=== PATIENT | female | born 1975 | race Caucasian/White ===

== ENCOUNTER 2024-09-26 07:27 | Outpatient (OUT) | payer OTHER, SELFPAY ==
--- NOTE | 2024-09-26 07:34 | MM_ITS ---
Patient Name: NICOLETTE BRADY MR#: [id number] : 1975 Exam Date: 09/26/2024 Ordering Doctor: DR LUIS ANTONIO PEREZ RADIOLOGY REPORT PROCEDURE: MM TOMOSYNTHESIS SCREENING BI COMPARISON: MG MAMM SCREEN 3D JIM CAD, 11/27/2021. MG MAMM SCREEN 3D JIM CAD, 12/01/2022. INDICATIONS: Screening Calculator Name NCI Breast Cancer Risk Assessment Tool 5 Year Breast Cancer Risk 0.80% Lifetime Breast Cancer Risk 7.20% Personal Breast Cancer No Personal Ovarian Cancer No Treatments None Family Cancers None LOCATION: [facility] BREAST COMPOSITION: The breasts are extremely dense, which lowers the sensitivity of mammography. FINDINGS: DIAGNOSTIC CATEGORY 1--NEGATIVE. NO CHANGE FROM COMPARISON ASSESSMENT. Scattered benign-appearing nodules are present. Scattered benign-appearing calcifications are present. Scattered benign-appearing lymph nodes are present. RIGHT BREAST: No significant suspicious finding. LEFT BREAST: No significant suspicious finding. RECOMMENDATIONS: ROUTINE MAMMOGRAM AND CLINICAL EVALUATION IN 12 MONTHS. PLEASE NOTE: A NORMAL MAMMOGRAM DOES NOT EXCLUDE THE POSSIBILITY OF BREAST CANCER. A CLINICALLY SUSPICIOUS PALPABLE LUMP SHOULD BE BIOPSIED. Dictated by: John Baker MD on 09/26/2024 at 09:12 Approved by: John Baker MD on 09/26/2024 at 09:14
== END 2024-09-26 07:28 | disposition home or self-care (01) ==
PROVIDERS: PCP Family Medicine; Visit Provider Obstetrics & Gynecology
DX: Z12.31 Encounter for screening mammogram for malignant neoplasm of breast (principal)
CPT/HCPCS: 77063; 77067

== ENCOUNTER 2025-09-03 08:44 | Outpatient (OUT) | payer OTHER, SELFPAY ==
--- OUTSIDE RECORDS SUMMARY | 2025-09-03 09:04 | XMS_ITS | CCD ---
Author Organization [facility] Care Team Providers Care Professor Of Law Name Role Phone CARMENZA SAVAGE Unavailable Unavailable Sanjuana Abreu Unavailable Unavailable Unavailable Jaci Solis Unavailable SUSY, DR ITSHA Cornell Admitting Unavailable WEST, DR TISHA Cornell Attending Unavailable LOIS, DR HODGES Primary Care Unavailable WEST, DR TISHA Cornell Consulting Unavailable ZIEBER, DR BOB Lobo Consulting Unavailable VISCI, DR SALMON Admitting Unavailable VISCI, DR SALMON Attending Unavailable LOIS, DR HODGES Primary Care Unavailable WEST, DR TISHA Cornell Consulting Unavailable VISCI, DR SALMON Consulting Unavailable YADIRAUINN, DR GAMINO Admitting Unavailable MCGUINN, DR GAMINO Attending Unavailable LOIS, DR HODGES Primary Care Unavailable KANU, DR GAMINO Consulting Unavailable Kanu, Hanny Referring Unavailable Hanny Bobby Attending Unavailable Lois, Dr. Sanjuana Diaz Primary Care Unavaila ble Raymond, Dr. Sanjuana Diaz Primary Care Unavaila ble Hanny Bobby Referring Unavailable Hanny Bobby Attending Unavailable Sanjuana Abreu MD Primary Care Provider [phone] Sanjuana Abreu MD Primary Care Provider ELIANA BRAGA Attending Unavailable VISCI, BRANDEN Alberto Attending Unavailable ALDO POPE Attending Unavailable HANNY BOBBY Referring Unavailable SANJUANA ABREU Primary Care Unavailable Allergies Allergy ClassificationReported Allergen(s)Allergy TypeDate of OnsetReaction(s) Facility (1 source)Adhesive agent; Translations: [ADHESIVE]Propensity to adverse reactions to drug (disorder)66-79-8554PWODyeiqsekrMer[facility] (7 sources)Acetaminophen / oxyCODONE; Translations: [Percocet TABS]Drug Allergy 10-67-1192EoucchnRrfamcpzapLima [facility] (1 source)Acetaminophen / oxyCODONEDrug Cvpvhho02-76-6516Qwi [facility] Repository (1 source)LatexDrug allergy (disorder)02-36-9792Ekj [facility] Repository (8 sources)Acetaminophen / oxyCODONE; Translations: [OXYCODONE-ACETAMINOPHEN] Drug Jeumjvi39-57-5930[facility] Medications Current Medications MedicationDrug Class(es)DatesSig (Normalized)Sig (Original)Acetaminophen / HYDROcodone (1 source)Opioid AgonistStart: 88-00-5197ukhr 1-2 tablets by mouth every four to six hours as needed for painNorco 10-325 MG 1-2 tablet as needed Orally every 4-6 hrs prn pain for 7 days February, ActiveamLODIPine 5 mg oral tablet (1 source)Dihydropyridine Calcium Channel BlockerStart: 08-20-2025 End: 15-97-5623gkqm 1 tablet by mouth once dailyamLODIPine (Norvasc) 5 mg tablet Indications: Benign essential hypertension , BMI 27.0-27.9,adult Take 1 tablet (5 mg) by mouth once daily. 30 tablet 11 08/20/2025 08/20/2026 Activebaclofen 10 mg oral tablet (1 source)gamma-Aminobutyric Acid-ergic Agonisttake 1 tablet by mouth every eight hoursBaclofen 10 MG 1 tablet with food or milk Orally Three times a day Activechlorthalidone 25 mg oral tablet (7 sources)Thiazide-like DiureticStart: 11-14-2024 End: 32-41-9883gkwk 1 tablet by mouth once dailychlorthalidone (Hygroton) 25 mg tablet Indications: Benign essential hypertension Take 1 tablet (25mg) by mouth once daily. 90 tablet 3 08/20/2025 ActiveStart: 12-21-2021 End: 54-83-6720fteu 1 tablet by mouth once dailychlorthalidone (Hygroton) 25 mg tablet Indications: Benign essential hypertension Take 1 tablet (25mg) by mouth once daily. 90 tablet 3 01/11/2024 Activeestradiol 1 mg oral tablet (14 sources)EstrogenStart: 09-27-2023 End: 97-91-0076xdqg 1 tablet by mouth once dailyestradiol (Estrace) 1 MG tablet Indications: Postmenopausal HRT (hormone replacement therapy) Take 1 tablet (1 mg) by mouth Daily 90 tablet 3 09/19/2024 ActivehydroCHLOROthiazide 25 mg oral tablet (7 sources)Thiazide Diuretictake 1 tablet by mouth in the morning hydroCHLOROthiazide (HYDRODiuril) 25 MG tablet Take 25 mg by mouth in the morning. ActiveLevonorgestrel (7 sources)Progestin, Progestin-containing Intrauterine DeviceLevonorgestrel (LILETTA, 52 MG, IU) Liletta (52 MG) Activelosartan potassium 50 mg oral tablet (13 sources)Angiotensin 2 Receptor BlockerStart: 12-20-2024 End: 79-89-4463lpsm 1 tablet by mouth once dailylosartan (Cozaar) 50 mg tablet Indications: Essential (primary) hypertension Take 1 tablet (50 mg) by mouth once daily. 90 tablet 3 08/20/2025 ActivemetroNIDAZOLE 500 mg oral tablet (2 sources)Nitroimidazole AntimicrobialStart: 09-19-2024 End: 20-47-9570qoas 1 tablet by mouth in the morningmetroNIDAZOLE (Flagyl) 500 MG tablet Indications: BV (bacterial vaginosis) Take 1 tablet (500 mg) by mouth in the morning and 1 tablet (500 mg) before bedtime. Do all this for 7 days. 14 tablet 09/19/2024 09/26/2024 Active Problems Active Problems Problem ClassificationProblemDateDocumented DateEpisodic/ChronicContraceptive and procreative management (2 sources)Intrauterine contraceptive device in situ; Translations: [Encounter for routine checking of intrauterine contraceptive device]74-41-5134Xiibzcsg Disorders of lipid metabolism (8 sources)Hyperlipidemia; Translations: [Other and unspecified hyperlipidemia] Onset: 909921-87-0205FwbwaqoLtbfbrbof hypertension (20 sources)Benign essential hypertension; Translations: [Benign essential hypertension]Onset: 30-91-5469RjazbpjIrhfqlibuqiza and screening for infectious disease (2 sources)Patient encounter status; Translations: [Encounter for screening for human papillomavirus (HPV)]08-98-3866YukibarcCpqmhegskjhs diseases of female pelvic organs (2 sources)Bacterial vaginosis; Translations: [Acute vaginitis]09-19-2024 EpisodicMenopausal disorders (2 sources)Postmenopausal state; Translations: [Hormone replacement therapy] 77-56-3077FetozatbOyvb disorders (1 source)Depressive disorder; Translations: [Major depressive disorder, single episode, unspecified]Onset: 71-06-9113MztmrutWsdvnujqf of unspecified nature or uncertain behavior (2 sources)Neoplastic disease; Translations: [Neoplasm of unspecified behavior of bone, soft tissue, and skin]05-85-6645GmwjfciqCtxod and unspecified benign neoplasm (2 sources)Melanocytic nevi of other parts of face; Translations: [Benign neoplasm of skin of other and unspecified parts of face]13-33-3306UmycdacyKyzzr female genital disorders (2 sources)Vaginal discharge; Translations: [Other specified noninflammatory disorders of vagina]08-61-2423IezjtjhcKhysx nutritional; endocrine; and metabolic disorders (1 source)Obese class I; Translations: [Obesity, unspecified]ChronicOther nutritional; endocrine; and metabolic disorders (1 source)Simple obesity ; Translations: [Other obesity due to excess calories] ChronicOther nutritional; endocrine; and metabolic disorders (2 sources)Body mass index 25-29 - overweight; Translations: [Body Mass Index 29.0-29.9, adult]EpisodicOther nutritional; endocrine; and metabolic disorders (7 sources)Overweight in adulthood with body mass index of 25 or more but less than 30; Translations: [Overweight]Onset: 752392-85-0638ZlpkzhsiHjnip nutritional; endocrine; and metabolic disorders (2 sources)Body mass index (BMI) 27.0-27.9, adult; Translations: [Body mass index (BMI) 27.0-27.9, adult]Onset: 58-23-6223PoegujwxZosinnykfwv; intervertebral disc disorders; other back problems (5 sources)Cervical arthritis; Translations: [Spondylosis without myelopathy or radiculopathy, cervical region]ChronicUnclassified (1 source)Patient encounter status; Translations: [Encounter for health counseling related to travel] Past or Other Problems Problem ClassificationProblemDateDocumented DateEpisodic/ChronicNonmalignant breast conditions (1 source)Disorder of breast, unspecified; Translations: [Disorder of breast, unspecified]Onset: 75-53-9893VayxcvboMyqpbhnucfs chest pain (6 sources)Chest pain; Translations: [Chest pain, unspecified]Onset: 11-15-2023 42-64-3200LxfzvqkaGrguj screening for suspected conditions (not mental disorders or infectious disease) (15 sources)Electrocardiogram abnormal; Translations: [Nonspecific abnormal electrocardiogram [ECG] [EKG]]Onset: 31-83-7680ItydjrwpHveaowrjg and history of mental health and substance abuse codes (6 sources)Ex-smoker; Translations: [Personal history of tobacco use]Onset: 732179-62-0324QsjifayzLpwsugi on above:Quit 03/2018 1/ ppd;Unclassified (1 source)Encounter for health counseling related to travelOnset: 03-31-2022 Resolved: 00-17-6923Gpjhljca veins of lower extremity (1 source)Varicose veins of lower extremity; Translations: [Varicose veins of bilateral lower extremities with other complications]Onset: 50-99-3368Fnlrbgeh Results Test NameValueInterpretationReference RangeFacilityNo Panel Informationon 98-99-8715Nlkb of biopsy: tangential Informed consent: discussed and consent obtained Informed consent comment: The risks and benefits of the biopsy were discussed. Risks include but are not limited to bleeding, infection, scarring, pain, and nerve damage. An opportunity to ask questions prior to the procedure was permitted and all questions were answered. Patient was prepped and draped in usual sterile fashion: area cleansed with alcohol. Anesthesia: the lesion was anesthetized in a standard fashion Anesthetic: 1% lidocaine w/ epinephrine 1-100,000 buffered w/ 8.4% NaHCO3 Instrument used: DermaBlade Hemostasis achieved with: electrodesiccation Outcome: patient tolerated procedure well Outcome comment: The specimen was placed in a prelabeled formalin container to be sent for pathology Post-procedure details: sterile dressing applied and wound care instructions given Post-procedure details comment: Emphasized need to contact clinic for any signs of infection, uncontrollable bleeding, or complications. Dressing type: bandage Additional details: Photo taken Amount of lidocaine used: 1.0 [facility] HealthType of biopsy: tangential Informed consent: discussed and consent obtained Informed consent comment: The risks and benefits of the biopsy were discussed. Risks include but are not limited to bleeding, infection, scarring, pain, and nerve damage. An opportunity to ask questions prior to the procedure was permitted and all questions were answered. Patient was prepped and draped in usual sterile fashion: area cleansed with alcohol. Anesthesia: the lesion was anesthetized in a standard fashion Anesthetic: 1% lidocaine w/ epinephrine 1-100,000 buffered w/ 8.4% NaHCO3 Instrument used: DermaBlade Hemostasis achieved with: electrodesiccation Outcome: patient tolerated procedure well Outcome comment: The specimen was placed in a prelabeled formalin container to be sent for pathology Post-procedure details: sterile dressing applied and wound care instructions given Post-procedure details comment: Emphasized need to contact clinic for any signs of infection, uncontrollable bleeding, or complications. Dressing type: bandage Additional details: Photo taken Amount of lidocaine used: 1.0 [facility] TOMOSYNTHESIS SCREENING BIon 90-49-3677[place] [address] Mammography Report Signed Patient: NICOLETTE BRADY MR#: [id number] : 1975 Acct:[id number] Age/Sex: 49 / F ADM Date: 09/26/24 Loc: MAMMO Attending Dr: BRANDEN PEREZ Ordering Physician: BRANDEN PEREZ Results: Date of Service: 09/26/24 Follow Up: Procedure(s): MM tomosynthesis screening BI Accession Number(s): [id number] cc: SANJUANA ABREU ; BRANDEN PEREZ Patient Name: NICOLETTE BRADY MR#: [id number] : 1975 Exam Date: 09/26/2024 Ordering Doctor: DR BRANDEN PEREZ RADIOLOGY REPORT PROCEDURE: MM TOMOSYNTHESIS SCREENING BI COMPARISON: MG MAMM SCREEN 3D JIM CAD, 11/27/2021. MG MAMM SCREEN 3D JIM CAD, 12/01/2022. INDICATIONS: Screening Calculator Name NCI Breast Cancer Risk Assessment Tool 5 Year Breast Cancer Risk 0.80% Lifetime Breast Cancer Risk 7.20% Personal Breast Cancer No Personal Ovarian Cancer No Treatments None Family Cancers None LOCATION: The [facility] BREAST COMPOSITION: The breasts are extremely dense, which lowers the sensitivity of mammography. FINDINGS: DIAGNOSTIC CATEGORY 1--NEGATIVE. NO CHANGE FROM COMPARISON ASSESSMENT. Scattered benign-appearing nodules are present. Scattered benign-appearing calcifications are present. Scattered benign-appearing lymph nodes are present. RIGHT BREAST: No significant suspicious finding. LEFT BREAST: No significant suspicious finding. RECOMMENDATIONS: ROUTINE MAMMOGRAM AND CLINICAL EVALUATION IN 12 MONTHS. PLEASE NOTE: A NORMAL MAMMOGRAM DOES NOT EXCLUDE THE POSSIBILITY OF BREAST CANCER. A CLINICALLY SUSPICIOUS PALPABLE LUMP SHOULD BE BIOPSIED. Dictated by: Tisha Baker MD on 09/26/2024 at 09:12 Approved by: Tisha Baker MD on 09/26/2024 at 09:14 Dictated By: Tisha Baker M.D. Signed By: 09/26/24914 DD/ 3 TD/TT: Status Controller:TBHRadiology, Radiologist, - 09/26/2024 [place] [address] Mammography Report Signed Patient: NICOLETTE BRADY MR#: [id number] : 1975 Acct:[id number] Age/Sex: 49 / F ADM Date: 09/26/24 Loc: MAMMO Attending Dr: BRANDEN PEREZ Ordering Physician: BRANDEN PEREZ Results: Date of Service: 09/26/24 Follow Up: Procedure(s): MM tomosynthesis screening BI Accession Number(s): [id number] cc: SANJUANA ABREU ; BRANDEN PEREZ Patient Name: NICOLETTE BRADY MR#: [id number] : 1975 Exam Date: 09/26/2024 Ordering Doctor: DR BRANDEN PEREZ RADIOLOGY REPORT PROCEDURE: MM TOMOSYNTHESIS SCREENING BI COMPARISON: MG MAMM SCREEN 3D JIM CAD, 11/27/2021. MG MAMM SCREEN 3D JIM CAD, 12/01/2022. INDICATIONS: Screening Calculator Name NCI Breast Cancer Risk Assessment Tool 5 Year Breast Cancer Risk 0.80% Lifetime Breast Cancer Risk 7.20% Personal Breast Cancer No Personal Ovarian Cancer No Treatments None Family Cancers None LOCATION: [facility] BREAST COMPOSITION: The breasts are extremely dense, which lowers the sensitivity of mammography. FINDINGS: DIAGNOSTIC CATEGORY 1--NEGATIVE. NO CHANGE FROM COMPARISON ASSESSMENT. Scattered benign-appearing nodules are present. Scattered benign-appearing calcifications are present. Scattered benign-appearing lymph nodes are present. RIGHT BREAST: No significant suspicious finding. LEFT BREAST: No significant suspicious finding. RECOMMENDATIONS: ROUTINE MAMMOGRAM AND CLINICAL EVALUATION IN 12 MONTHS. PLEASE NOTE: A NORMAL MAMMOGRAM DOES NOT EXCLUDE THE POSSIBILITY OF BREAST CANCER. A CLINICALLY SUSPICIOUS PALPABLE LUMP SHOULD BE BIOPSIED. Dictated by: Tisha Baker MD on 09/26/2024 at 09:12 Approved by: Tisha Baker MD on 09/26/2024 at 09:14 Dictated By: Tisha Baker M.D. Signed By: 09/26/24914 DD/ 3 TD/TT: Status Controller: [facility] CenterRad[facility] Study observation (narrative)[facility] TOMOSYNTHESIS SCREENING BIOrdered By: Radiologist Radiology on 80-53-5058JDNEUniversity Health Truman Medical Center Work Phone: Laboratory - Microbiology and Antimicrobial susceptibilityon 20-30-3673Qbwfsinta vaginosis and vaginitis DNA panel Probe+sig amp (Vag fld)PositiveNegativeUniversity Health Truman Medical CenterNo Panel Informationon 09-19-2024 Interpretation and review of laboratory resultsAbnormalNOParkland Health Center Trichomonas, UANegativeNOMA HealthcareYeastNegativeUniversity Health Truman Medical CenterNOMA HealthcareOffice Visit (Cardiology)on 29-22-9874Cspyhw-up visit Diagnoses/Problems Assessed Hyperlipidemia (272.4) (E78.5) Benign essential hypertension (401.1) (I10) Overweight with body mass index (BMI) of 26 to 26.9 in adult (278.02,V85.22) (E66.3,Z68.26) Orders Benign essential hypertension Basic Metabolic Panel; Status:Active - Retrospective Authorization; Requested for:04Jan2023; Hyperlipidemia Lipid Panel; Status:Active - Retrospective Authorization; Requested for:04Jan2023; Overweight with body mass index (BMI) of 26 to 26.9 in adult Healthy Weight Tips; Status:Complete - Retrospective Authorization; Done: 04Jan2023 Some eating tips that can help you lose weight.; Status:Complete - Retrospective Authorization; Done: 04Jan2023 Patient Instructions Please bring all medicines, vitamins, and herbal supplements with you when you come to the office. Prescriptions will not be filled unless you are compliant with your follow up appointments or have a follow up appointment scheduled as per instruction of your physician. Refills should be requested at the time of your visit. Follow up in 1 year Chief Complaint NICOLETTE BRADY is being seen for an annual follow-up of. History of Present Illness Patient returns in follow-up of problems as noted. She is done well. Blood pressure control continues to be excellent. Last year we did a lipid profile and lipids were elevated and we recommended statin therapy but she declined. This was discussed in great detail today she is more amenable and/or willing to implement lipid-lowering therapy. The merits of treating her lipids were discussed and explained in great detail. She has a 52-year-old brother has had several heart attacks and I use this as an example as to why we need to aggressively treat risk factors including her hypertension and hyperlipidemia. She is willing to initiate statin therapy. She does, though, wished us to perform a lipid profile before initiating statin therapy. We will do so but I advised her that more than likely we will contact her and advised lipid-lowering therapy. We also advocated diet exercise weight loss as a means to favorably improve her risk profile. She understands her recommendations and will attempt to implement them. Surgical History Problems History of Arm surgery plates History of Tonsillectomy Current Meds Medication NameInstruction Chlorthalidone 25 MG Oral TabletTAKE 1 TABLET DAILY. Estradiol 1 MG Oral TabletTAKE 1 TABLET DAILY DIRECTED. Losartan Potassium 50 MG Oral TabletTAKE 1 TABLET DAILY. Patient did not bring medication list or bottles. Updated verbally with patient Allergies Medication Percocet TABS Adverse Reaction; Itching; Recorded By: Dahiana Colunga; 08/24/2021 9:06:04 AM Social History Problems Alcohol use (V49.89) (Z78.9) occasionally Caffeine use (V49.89) (Z78.9) 1 sometimes 2 cups coffee in the morning Former smoker (V15.82) (Z87.891) Quit 03/2018 1/2 ppd No illicit drug use Review of Systems Constitutional: not feeling tired. Eyes: no eyesight problems. ENT: no hearing loss and no nosebleeds. Cardiovascular: no intermittent leg claudication and as noted in HPI. Respiratory: no chronic cough and no shortness of breath. Gastrointestinal: no change in bowel habits and no blood in stools. Genitourinary: no urinary frequency. Skin: no skin rashes. Neurological: no seizures and no frequent falls. Psychiatric: no depression and not suicidal. All other systems have been reviewed and are negative for complaint. Vitals Vital Signs Recorded: 04Jan2023 08:49AM Heart Rate64, R Radial Holrdvaf785, RUE, Sitting Saoerwxjx08, RUE, Sitting Height5 ft 6 in Rnhnkh321 lb BMI Brmpuxrxem06.95 kg/m2 BSA Calculated1.85 Tobacco Useb) No PHQ-2 #1. Over the last 2 weeks have you felt down, depressed or hopeless? (If yes, answer PHQ-9 below)No PHQ-2 #2. Over the last 2 weeks have you felt little interest or pleasure in doing things? (If yes,answer PHQ-9 below)No Physical Exam Constitutional: alert and in no acute distress. Eyes: no erythema, swelling or discharge from the eye . Neck: neck is supple, symmetric, trachea midline, no masses and no thyromegaly . Pulmonary: no increased work of breathing or signs of respiratory distress and lungs clear to auscultation. Cardiovascular: carotid pulses 2+ bilaterally with no bruit , JVP was normal, no thrills , regular rhythm, normal S1 and S2, no murmurs , pedal pulses 2+ bilaterally and no edema . Abdomen: abdomen non-tender, no masses and no hepatomegaly . Skin: skin warm and dry, normal skin turgor . Psychiatric judgment and insight is normal and oriented to person, place and time . Signatures Electronically signed by : Hanny Bobby MD; Jan 04 2023 9:51AM EST (Author) [facility] TouchworksTobacco Screening.on 24-14-2824Cffwc depression screening assessmentCanby Medical Center 250 DO Work Phone: Tobacco use status CPHSb) [facility] 250 DO Work Phone: MG MAMM SCREEN 3D JIM CADon 45-22-2061XU MAMM SCREEN 3D JIM CADPatient: NICOLETTE BRADY Exam Date: 12/01/2022 : 1975 Gender:F Ordering : DR BRANDEN PEREZ Admission #: [id number] Family : Order #: [id number] CLICK HERE TO VIEW EXAM RADIOLOGY REPORT PROCEDURE: MAMMOGRAM SCREENING 3D BILATERAL CAD COMPARISON: MG MAMM SCREEN JIM W CAD, 11/19/2020. MG MAMM SCREEN 3D JIM CAD, 11/27/2021. INDICATIONS: Screening mammography Calculator Name NCI Breast Cancer Risk Assessment Tool 5 Year Breast Cancer Risk 0.80% Lifetime Breast Cancer Risk 7.50% Personal Breast Cancer No Personal Ovarian Cancer No Treatments None Family Cancers None LOCATION: [facility] BREAST COMPOSITION: Extremely dense, which lowers the sensitivity of mammography. FINDINGS: DIAGNOSTIC CATEGORY 1--NEGATIVE. NO CHANGE FROM COMPARISON ASSESSMENT. RIGHT BREAST: No significant suspicious finding. LEFT BREAST: No significant suspicious finding. RECOMMENDATIONS: ROUTINE MAMMOGRAM AND CLINICAL EVALUATION IN 12 MONTHS. PLEASE NOTE: A NORMAL MAMMOGRAM DOES NOT EXCLUDE THE POSSIBILITY OF BREAST CANCER. A CLINICALLY SUSPICIOUS PALPABLE LUMP SHOULD BE BIOPSIED. Dictated by: Tisha Baker MD on 12/01/2022 at 08:02 Approved by: Tisha Baker MD on 12/01/2022 at 08:06[facility] COVID Quick Testingon 06-03-8224EbordjQtepkrenOfzip NAME'S Online Department Store Other LIPID PROFILEon 88-52-7862YOQE-HDL RATIO NORMSEE BELOW NormalThe [facility] HospitalComvibra hospital [facility] [place] on above:Result Comment: 3.3 - 4.4 LOW RISK 4.4 - 7.1 AVERAGE RISK 7.1 - 11.0 MODERATE RISK >11.0 HIGH RISKPerformed By: #### BMP, LIPID #### [facility] [address] [place] [address] Dr. Joan NegreteCholesterol [Mass/Vol]225 mg/dLCritically high<=200The [facility] on above:Performed By: #### BMP, LIPID #### [facility] [address] [place] [address] Dr. Joan Bergmanesterol in HDL [Mass/Vol]55 mg/zPYqdzfg69-38Fpg [facility] on above:Performed By: #### BMP, LIPID #### [facility] [address] [place] [address] Dr. Joan NegreteCholesterol in LDL [Mass/Vol]151.2 mg/dLNoUniversity Hospitals [facility] on above:Performed By: #### BMP, LIPID #### [facility] [address] [address] [address] Joan NegreteCholesterol.total/Cholesterol in HDL [Mass ratio]4.1 {ratio} NormalThe [facility] HospitalComment on above:Performed By: #### BMP, LIPID #### [facility] [address] [place] [address] Dr. Joan Farrar NORMAL> or = 60 mg/dl - LOW CARDIOVASCULAR RISK <40 mg/dl - HIGH CARDIOVASCULAR RISKWright-Patterson Medical CenterComment on above:Performed By: #### BMP, LIPID #### [facility] [address] [place] [address] Dr. Joan NegreteLDL CALC NORMALSEE BELOWNoRiverside Methodist HospitalComment on above:Result Comment: <100 mg/dl OPTIMAL 100 - 129 mg/dl NEAR OR ABOVE OPTIMAL 130 - 159 mg/dl BORDERLINE HIGH 160 - 189 mg/dl HIGH >190 mg/dl VERY HIGH Performed By: #### BMP, LIPID #### [facility] [address] [place] [address] Dr. Joan NegreteTriglyceride [Mass/Vol]94 mg/dLNormal<=150The [facility] Comment on above:Performed By: #### BMP, LIPID #### [facility] [address] [place] [address] Dr. Joan HancockLDL CALC18.8 mg/dLNoRiverside Methodist HospitalComment on above: Performed By: #### BMP, LIPID #### [facility] [address] [place] [address] Dr. Joan NegretePROF CHEM 8 (BAS METB)on 58-62-6056Hulpx gap [Moles/Vol]11.7 mmol/LNormalOhiohealth Marion General HospitalComment on above:Performed By: #### BMP, LIPID #### [facility] [address] [place] [address] Dr. Joan NegreteCalcium [Mass/Vol]8.4 mg/dLCritically low8.5-10.1The [facility] HospitalComment on above:Performed By: #### BMP, LIPID #### [facility] [address] [place] [address] Dr. Joan NegreteChloride [Moles/Vol]105 mmol/BZagcmg73-067HluOhiohealth Marion General Hospital Comment on above:Performed By: #### BMP, LIPID #### [facility] [address] [address] [address] Joan NegreteCO2 [Moles/Vol]29.1 mmol/GLmvfai55.0-30.0[facility] Comment on above:Performed By: #### BMP, LIPID #### [facility] [address] [address] [address] Joan NegreteCreatinine [Mass/Vol]0.79 mg/dLNormal0.52-1.04Ohio[facility] HospitalComment on above:Performed By: #### BMP, LIPID #### [facility] [address] [place] [address] Dr. Joan SalgadoGFR-AF ESTONIAN>60Normal>=60The [facility] HospitalComment on above:Performed By: #### BMP, LIPID #### [facility] [address] [place] [address] Dr. Joan SalgadoGFR-NON AF ESTONIAN>60Normal>=60[facility] HospitalComment on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 agree with screening films in one year. No interventions needed at thistime. Return to her PCPCarmenza Savage MDNormalCMercy HospitalPROFIRELANDS REGIONAL MED[facility]ENTER ID: [id number]: Lisa Leslie: (none)Author Type: PhysicianType: Progress NotesFiled: 12/05/2017 10:37 AMNote Text:SECOND OPINION OUTSIDE BREAST MCRTHXX89 year old female patient with recent outside mammogram and ultrasounddated 10/24/2017.The breast tissue is heterogeneously dense. There are multiple bilateralstable masses unchanged since 2017. She underwent bilateral ultrasound andwas noted to have multiple simple cysts. The largest in the left breast at3:00 measures 2.2 x 1.2 x 2.1 cm.Agree with outside imaging and results.BIRADS 2 BENIGNReturn to screening.Lisa Aguiar MD12/05/201710:34 AMNormalSheltering Arms HospitalMA OUTSIDE DICOM IMPORT -NBNRon 49-02-6816NZZT OUTSIDE DICOM IMPORT -NBNRImages were obtained outside of [facility] [id number]. [facility] BREAST JIM LIMITED IMPORTon 19-72-6851Qekhtwrls (total)Images were obtained outside of [facility] [id number]_[id number]-Patterson Medical CenterMAMM OUTSIDE DICOM IMPORT -NBNRon 85-56-9562MBSN OUTSIDE DICOM IMPORT -NBNRImages were obtained outside of [facility] [id number]_[id number]. [facility] BREAST JIM LIMITED IMPORTon 76-79-2353Cwysdbyvz (total)Images were obtained outside of [facility] [id number]_IDCSIACKettering Health Main Campus OUTSIDE DICOM IMPORT -NBNRon 09-47-9072NYUL OUTSIDE DICOM IMPORT -NBNRImages were obtained outside of [facility] [id number]_[id number]-Patterson Medical Center Vital Signs Date TimeVital SignValuePerforming VwvnuafhqMdllzlxp26-70-8534 15:58-0500Body mirlcr696.6 cmAldo Pope AVIATION NEUROPSYCHOLOGIST-CONSULTING PROPERTY MANAGER Work Phone: [phone] [place], [place] 3378511-04-2025 15:58-0500 Body mass index (BMI) [Ratio]27.08 kg/a1TyrinAldo Pope AVIATION NEUROPSYCHOLOGIST-CONSULTING PROPERTY MANAGER Work Phone: [phone] [place], [place] 3378511-04-2025 15:58-0500 Body ymmbrq48.11 kgAldo Pope AVIATION NEUROPSYCHOLOGIST-CONSULTING PROPERTY MANAGER Work Phone: [phone])[address]11-04-2025 15:58-0500 Diastolic blood cliugtlq114 mm[Hg]Aldo Pope AVIATION NEUROPSYCHOLOGIST-CONSULTING PROPERTY MANAGER Work Phone: [phone]11-04-2025 15:58-0500 Heart rate64 /minDrito Pope AVIATION NEUROPSYCHOLOGIST-CONSULTING PROPERTY MANAGER Work Phone: [phone])[address]11-04-2025 15:58-0500 Systolic blood ushmwadw235 mm[Hg]Aldo Pope AVIATION NEUROPSYCHOLOGIST-CONSULTING PROPERTY MANAGER Work Phone: [phone] [place], [place] 3378512-04-2024 14:43-0500 Body mass index (BMI) [Ratio]28.39 kg/b5Hxqqsrh Visci DO Work Phone: [facility] CenterXgatbxfdst79-40-3085 14:43-0500Body gayhoj82.2 kg Branden Visci DO Work Phone: [facility] CenterVcrvbioflt87-17-8773 14:43-0500Diastolic blood fluudadt59 mm[Hg]Branden Visci DO Work Phone: [facility] CenterCqbejrwxvm68-45-8914 14:43-0500Systolic blood egkxiaiy610 mm[Hg]Branden Visci DO Work Phone: [facility] CenterHwhqyfitsq42-05-1318 16:02-0400Body debdui555.6 cmHanny Bobby MD Work Phone: [facility]03-27-2024 16:02-0400 Body mass index (BMI) [Ratio]26.31 kg/d2DmsloaiHanny Bobby MD Work Phone: [facility]03-27-2024 16:02-0400 Body qahtws23.94 kgHanny Bobby MD Work Phone: [facility]03-27-2024 16:02-0400 Diastolic blood nhilvvdd34 mm[Hg]Hanny Bobby MD Work Phone: [facility]03-27-2024 16:02-0400 Heart rate78 /minHanny Bobby MD Work Phone: [facility]03-27-2024 16:02-0400 Systolic blood srebsgph503 mm[Hg]Hanny Bobby MD Work Phone: [facility]03-21-2023 08:49-0400 Body srnrja137.64 cmRugen Erin Raymond Work Phone: [phone]-Xddnk [facility] [address] DO Work Phone: [phone] 08:49-0400Body mass index (BMI) [Ratio] 26.95 kg/w0Wkspu M Raymond Work Phone: mp084-0970XT-Dgrtx [facility] [address] DO Work Phone: [phone]) 549-757003-21-2023 08:49-0400Body surface area Derived from formula1.85 f2Eyhlh M Raymond Work Phone: mp866-5239UX-Ohdsz [facility] [address] DO Work Phone: [phone] 08:49-0400Body nmgadn81.75 kgRugen M Lois Work Phone: mp233-4420FL-Hemcx [facility] [address] DO Work Phone: [phone] 862-143603-21-2023 08:49-0400Diastolic blood mm[Hg] Rugflaco Khan Lois Work Phone: mp773-8263WC-Uadeu [facility] [address] DO Work Phone: 1(763) 411-125403-21-2023 08:49-0400Heart rate64 /minRugen M Raymond Work Phone: mp948-8556KH-Gwpwj [facility] [address] DO Work Phone: 1(833) 807-213603-21-2023 08:49-0400Systolic blood mm[Hg] Sanjuana Khan Raymond Work Phone: mp303-6188IC-Fpeto [facility] [address] DO Work Phone: 1(395) 298-449004-06-2022 08:17-2038011.2 1Rruby Hartmanna Work Phone: [phone]-Ucecm [facility] [address] DO Work Phone: Comment on above:MBGUQ34-37-9637 08:16-0400Body height 167.64 cmRruby Hartmanna Work Phone: mp215-5974JU-Dwkun [facility] [address] DO Work Phone: 1(877) 249-559203-28-2022 08:16-0400Body mass index (BMI) [Ratio] 27.12 kg/d4MbxyoSanjuana Hartmanna Work Phone: mp072-0546GU-Tsjyx [facility] [address] DO Work Phone: [phone] 334-483403-28-2022 08:16-0400Body surface area Derived from formula1.86 o9Fjclw M Raymond Work Phone: mp990-0860BB-Wktcf [facility] [address] DO Work Phone: [phone]) 802-361103-28-2022 08:16-0400Body lkbirc64.2 kgSanjuana Khan Raymond Work Phone: mp117-9767VH-Svnde [facility] [address] DO Work Phone: [phone]) 616-815303-28-2022 08:16-0400Diastolic blood zvfsqhsi57 mm[Hg] Sanjuana Khan Lois Work Phone: mp280-3800GD-Bwbet [facility] [address] DO Work Phone: 1(271) 441-875703-28-2022 08:16-0400Heart rate64 /minSanjuana Khan Raymond Work Phone: mp455-1087FU-Vbbtc [facility] [address] DO Work Phone: 1(684) 395-606503-28-2022 08:16-0400Systolic blood gaxnpowz290 mm[Hg] Sanjuana Abreu Work Phone: [phone]-Iwskc [facility] [address] DO Work Phone: Encounters Encounter DateEncounter TypeCare ProviderFacilityStart: 08-20-2025 End: 52-83-7175Imvokk outpatient visit 25 minutesAldo Pope AVIATION NEUROPSYCHOLOGIST-CONSULTING PROPERTY MANAGER Work Phone: [facility] CenterComment on above:Benign essential hypertension (Primary Dx); BMI 27.0-27.9,adult; Essential (primary) hypertensionStart: 08-20-2025 End: 67-61-3909gajzeabagxTMMHDPhoebe Worth Medical Center AmbulatoryStart: 06-18-2025 End: 59-86-8305Ekbyja outpatient new 30 minutesNatalie A Felter AVIATION NEUROPSYCHOLOGIST-CONSULTING PROPERTY MANAGER Work Phone: noms [place] DermatologyComment on above:Melanocytic nevus of face, other location (Primary Dx); Neoplasm of unspecified behavior of bone, soft tissue, and skinStart: 06-18-2025 End: 21-16-7816ryjgshopjoHVCQHBX A FELTERNot AvailableStart: 06-18-2025 End: 69-60-1285Xzrqbw flowsheetNatalie A Felter AVIATION NEUROPSYCHOLOGIST-CONSULTING PROPERTY MANAGER Work Phone: [facility] [place] DermatologyStart: 06-18-2025 End: 60-74-4816Zeogbt flowsheetNatalie A Felter AVIATION NEUROPSYCHOLOGIST-CONSULTING PROPERTY MANAGER Work Phone: [facility] [place] DermatologyStart: 09-26-2024 End: 59-96-3091Kuyydeuqn Result EncounterRichard A Visci DO Work Phone: noms External Department UnsolicitedStart: 09-26-2024 End: 22-78-4487Palwtlodu Result EncounterRichard A Visci DO Work Phone: noms External Department UnsolicitedStart: 09-19-2024 End: 70-10-2949Rchukfu encounter statusRichard A Visci DO Work Phone: noms HealthcareStart: 09-19-2024 End: 48-61-6058Vjpidexa preventive med est patient 40-64yrsRicheldon Alberto Visci DO Work Phone: noms [facility] OBComment on above:Encounter for gynecological examination with abnormal finding; Encounter for screening mammogram for malignant neoplasm of breast; Screening for malignant neoplasm of cervix; Screening for HPV (human papillomavirus); Intrauterine device surveillance; Postmenopausal HRT (hormone replacement therapy); Vaginal discharge; BV (bacterial vaginosis)Start: 09-19-2024 End: 01-59-8635wwkfkiclxpLHFYBNF A VISCINot AvailableStart: 09-19-2024 End: 24-02-2580Nodtrs flowsheetRichard A Visci DO Work Phone: noms [facility] OBStart: 09-19-2024 End: 28-90-8278Acvsgh flowsheetRichard A Visci DO Work Phone: noms [facility] OBStart: 01-11-2024 End: 91-13-2966Zfiela outpatient visit 15 minutesHanny Bobby MD Work Phone: [facility] HealthlandsComment on above:Benign essential hypertension (Primary Dx); Mixed hyperlipidemia; BMI 26.0-26.9,adult; Former smokerStart: 00-96-8809Crhifj outpatient visit 15 minutesSanjuana Abreu Work Phone: [phone]-Ftyzx[facility] 250 DO Work Phone: Start: 28-56-9037dorwstljruOxysrpn McGuinn Facility:[id number]: 12-01-2022 End: 92-37-4783lxrefywagdBU BRANDEN VISCIFacility:O5Vzbue: 06-02-2022 End: 89-46-6600ejtknyrnxxMT TISHA Cornell WESTFacility:L2Wkplj: 03-31-2022 End: 41-87-4584iequzbnfekEoyevw Dymond Other [place] [employer] Other Start: 66-57-6081Tbxysrv evaluation of patient and reportJaci FajardomondFPG Urgent Care ClydeStart: 40-20-6449Avaynsduv encounter Sanjuana Abreu Work Phone: [phone]-Qtwqk [facility] 250 DO Work Phone: Start: 01-20-2022 End: 84-97-1415sxapbwixoeIR WILLIAM MCGUINNFacility:Z1Dvinn: 94-16-9127Sasknp outpatient visit 15 minutesSanjuana Abreu Work Phone: [phone]-Jkjrl [facility] 250 DO Work Phone: Start: 34-48-0157nojjibjihyWuLeia Sanjuana Abreu Facility:[id number]: 76-90-5996Qs RenewalSanjuana Abreu Work Phone: [phone]-Cqphf [facility] 250 DO Work Phone: Start: 82-23-6798DrpwwwncjeMBTALY F GRUNDGUADALUPE COUNTY HOSPITALCleJ.W. Ruby Memorial Hospitalveland Procedures DateProcedureProcedure DetailPerforming ClinicianStart: 06-18-2025 End: 29-77-1440OFET / NAIL BIOPSYNatalimariely Braga AVIATION NEUROPSYCHOLOGIST-CONSULTING PROPERTY MANAGER Work Phone: Start: 44-40-4484TC TOMOSYNTHESIS SCREENING BIRicheldon Alberto Visci DO Work Phone: start: 73-68-8992GtdknjmiaokHzadbwg Felter AVIATION NEUROPSYCHOLOGIST-CONSULTING PROPERTY MANAGER Work Phone: Start: 24-60-5060Uam prim src wet mount nfct agt Branden A Visci DO Work Phone: start: 63-20-1636OgusaggldhtGwmuzys McGuinn MD Work Phone: Start: 46-07-6480Oyjsmpzijqc observation [Identifier] in Cervix by Cyto stainBranden Perez DO Work Phone: surgical repair of upper extremitySanjuana Abreu Work Phone: Comment on above:plates;TonsillectomySanjuana Abreu Work Phone: Plan of Treatment DateCare ActivityDetailAuthorStart: 66-15-4737Enqgsjlpk for malignant neoplasm of cervixNOMS HealthcareStart: 97-98-0639Mahmhwkbu for malignant neoplasm of cervixNOMS HealthcareStart: 57-21-4229Pjxexwoxf for malignant neoplasm of colon [facility] HealthcareStart: 06-17-2026 End: 80-44-0131Kxfkwsx encounter procedureNOMS Nair DermatologyStart: 10-24-2025 End: 26-06-5881Xtbxlzi encounter xhedfmwrq63/08/2026 3:30 PM EST Office Visit [facility] [place] [facility] [address] [place] [address] Eliana Braga, AVIATION NEUROPSYCHOLOGIST-CONSULTING PROPERTY MANAGER [address] [place] [address] [facility]ITALJulian Nair DermatologyStart: 10-01-2025 End: 03-92-8818Gptaimd encounter ifhqyvpxy64/16/2025 4:00 PM EST Office Visit [facility] [address] [facility] [address] [facility] [address] [place] [address] Aldo Pope, AVIATION NEUROPSYCHOLOGIST-CONSULTING PROPERTY MANAGER [address] [place] [address] [facility] CenterStart: 09-30-2025 End: 01-65-5516Hkpkdfu encounter procedureNOMS SWS OBStart: 08-27-7603Erixqxgtw for malignant neoplasm of breastMammogramNOMS HealthcareStart: 09-23-2025 End: 01-56-5680Lclafzwzkklh / ancillary services didpoggjws11/08/2025 4:15 PM EST Ancillary Procedure [facility] [address] [facility] [address] [place] [address] MKMarshfield Medical Center Beaver Damtart: 62-31-3723Mnguao Adult PhysicalYearly [facility] CenterStart: 09-03-2025 End: 00-03-1993Gzhzyzc encounter hrybkgjvd07/ 7:45 AM EST [facility]ment [facility] [address] [place] [address] [facility] Haily MontoyaStart: 08-20-2025 End: 46-44-4582Asoqb metabolic 2000 panel - Serum or PlasmaBasic Metabolic Panel Lab Routine Benign essential hypertension BMI 27.0-27.9,adult Expected: 2024 (Approximate), Expires: 08/20/2026UnThe [facility] Work Phone: Comment on above:Expected: 08/20/2025 (Approximate), Expires: 08/20/2026Start: 08-20-2025 End: 25-52-4106YZ for calcium scoring WO contrast and CTA W contrast IV Heart and coronary arteriesCT cardiac scoring wo IV contrast Imaging Routine Benign essential hypertension Expected: 08/20/2025, Expires: 08/20/2026Un[facility] Work Phone: Comment on above:Expected: 08/20/2025, Expires: 08/20/2026Start: 08-20-2025 End: 61-13-9525Mlvdi 1996 panel - Serum or PlasmaLipid Panel Lab Routine Benign essential hypertension BMI 27.0-27.9,adult Expected: 08/20/2025 (Approximate), Expires: 08/20/2026UnThe [facility] Work Phone: Comment on above:Expected: 08/20/2025 (Approximate), Expires: 08/20/2026Start: 08-20-2025 End: 08-90-7485Cxbazgyiutx [Units/volume] in Serum or PlasmaThyroid Stimulating Hormone Lab Routine Benign essential hypertension Expected: 08/20/2025 (Approxim ate), Expires: 08/20/2026[facility] Work Phone: Comment on above:Expected: 08/20/2025 (Approximate), Expires: 08/20/2026Start: 08-20-2025 End: 14-43-6447LC Heart TransthoracicTransthoracic Echo Limited Echocardiography Routine Benign essential hypertension Expected: 08/20/2025 (Approximate), Expires: 08/20/2027[facility] Service Area Work Phone: Comment on above:Expected: 08/20/2025 (Approximate), Expires: 08/20/2027Start: 06-18-2025 End: 43-03-7959Xbjmjki encounter jsikeroqz41/02/2025 2:50 PM EDT Office Visit [facility] [address] [place] [address] Eliana Braga, AVIATION NEUROPSYCHOLOGIST-CONSULTING PROPERTY MANAGER [address] [place] [address] [facility] Comment on above:ArrivedStart: 45-16-2210ANZYJ-19 Vaccine ( season) COVID-19 Vaccine ( season)[facility]: 68-30-2331Rfxivlywj vaccinationInfluenza Vaccine (#1)[facility]OM HealthcareStart: 25-49-0610Yjhttdpcw vaccinationInfluenza Vaccine (#1)[facility]: 01-22-2025 End: 76-51-6154Jjnjazv encounter nloqtvqki35/08/2025 9:00 AM EDT Office Visit [facility] [address] [facility] [address] [address] [place] [address] Hanny Steele, [address] [place] [address] [facility]: 09-19-2024 End: 13-55-0066Zaqudlq encounter ejsrnxzes30/04/2024 2:15 PM EST Office Visit [facility] [address] [place] [address] Branden Perez, DO [address] [place], [place] [address] Encounter for gynecological examination with abnormal finding; Encounter for screening mammogram for malignant neoplasm of breast; Screening for malignant neoplasm of cervix; Screening for HPV (human papillomavirus); Intrauterine device surveillanceNOSELMA COMMUNITY [facility] OBComment on above: Encounter for gynecological examination with abnormal finding; Encounter for screening mammogram for malignant neoplasm of breast; Screening for malignant neoplasm of cervix; Screening for HPV (human papillomavirus); Intrauterine device surveillanceStart: 09-19-2024 End: 25-93-5357LLI Breast - bilateral screeningBilateral screening mammogram with tomosynthesis Imaging Routine Encounter for screening mammogram for malignant neoplasm of breast Expected: 09/19/2024, Expires: 11/20/2025N[facility] HealthcareComment on above:Expected: 09/19/2024, Expires: 11/20/2025Start: 09-19-2024 End: 07-96-2808OAU, APT HPV,RFX 16/18,45IGP, APT HPV,RFX 16/18,45 Lab Routine Screening for malignant neoplasm of cervix Screening for HPV (human papillomavirus) Intrauterine device surveillance Expected: 09/19/2024 (Approximate), Expires:09/19/2025[facility] Work Phone: comment on above:Expected: 09/19/2024 (Approximate), Expires: 09/19/2025Start: 30-49-8807Jetutaoix vaccinationInfluenza Vaccine (#1) [facility] HealthcareStart: 82-56-0476Dhxosflfl for malignant neoplasm of cervixPap SmearCEDAR CITY HOSPITAL HealthcareStart: 04-87-1410VOT, Provider: Hanny Bobby, Status: Pen, Time: 3:50 PMFUV, Provider: Hanny Bobby, Status: Pen, Time: 3:50 PMMP- [facility] 250 DO Work Phone: Start: 13-57-0718Baaqlkhut for malignant neoplasm of breastMammogramUnOhio State East Hospital: 36-17-1023JHEOZ-19 Vaccine ( season)COVID-19 Vaccine ( season)[facility]: 55-34-4686Zprjkcuti vaccinationInfluenza Vaccine (#1)[facility]: 08-02-5734Afsbpuozxktu vaccination Pneumococcal Vaccine (1 of 1 - PCV)[facility]: 50-44-5404Erjrhl Vaccines (1 of 2)Zoster Vaccines (1 of 2)[facility]: 82-29-8762KFU, Provider: Hanny Bobby, Status: Pen, Time: 8:50 AMFUV, Provider: Hanny Bobby, Status: Pen, Time: 8:50 AMMP-[facility] 250 DO Work Phone: Start: 20-72-1022BZQ, Provider: Hanny Bobby, Status: Pen, Time: 8:10 AMFUV, Provider: Hanny Bobby, Status: Pen, Time: 8:10 AMMP-[facility] 250 DO Work Phone: Start: 38-74-8036OJdX/Tdap/Td Vaccines (1 - Tdap) DTaP/Tdap/Td Vaccines (1 - Tdap)[facility]: 04-61-1751Njcjcahro for malignant neoplasm of cervixUnOhio State East Hospital: 28-23-5944Ncldofqos B Vaccines (1 of 3 - 19+ 3-dose series) Hepatitis B Vaccines (1 of 3 - 19+ 3-dose series)[facility]: 99-59-4606Wxbhmixp mellitus screeningDiabetes Screening [facility]: 87-85-2552Frrlhofjt C screeningHepatitis C ScreeningUnOhio State East Hospital: 55-89-4688YPF Vaccines (1 of 1 - Standard series)MMR Vaccines (1 of 1 - Standard series)[facility]: 21-74-4055Sblwmkuvq B Vaccines (1 of 3 - 3-dose series) Hepatitis B Vaccines (1 of 3 - 3-dose series)[facility] Start: 78-71-1896CIT screeningHIV ScreeningUnThe [facility] Start: 50-93-8718Tbvsn panelLipid PanelUnOhio State [facility] Hospital: 02-47-3925Jirmbprim for malignant neoplasm of colonUnOhio [facility] Hospital: 46-49-9199Fpuztg Adult PhysicalYearly Adult PhysicalUnThe MetroHealth SystemDermatopathology examDermatopathology exam Pathology and Cytology Timed Neoplasm of unspecified behavior of bone, soft tissue, and skin Release Upon Ordering for 1 Occurrences starting 06/18/2025[facility] Work Phone: comment on above:Release Upon Ordering for 1 Occurrences starting 06/18/2025 Immunizations Immunization DateImmunizationNotesCare BaopqzrfGjawrnen99-14-3078mbpwfhkkd, injectable, quadrivalent, preservative freeRugen M Raymond Work Phone: [phone]-JlhedBrent [place]ille [address] DO Work Phone: [phone]) [phone]ohfis virus vaccine, unspecified formulationHanny Bobby MD Work Phone: [facility] Work Phone: [phone]) [phone]-OksETljx COVID-19 Vacc 30 MCG/0.3ML Intramuscular SuspensionRugen M Raymond Work Phone: [facility]04-13-2021Pfizer- BioNTech COVID-19 Vacc 30 MCG/0.3ML Intramuscular SuspensionRugen M Lois Work Phone: [phone]-SshrxMayo Clinic Hospital 250 DO Work Phone: [phone]) [phone]-BbkPQdit COVID-19 Vacc 30 MCG/0.3ML Intramuscular SuspensionRugen M Raymond Work Phone: mp012-8326KU-IqllzMayo Clinic Hospital 250 DO Work Phone: [phone]) [phone], injectable, quadrivalent, preservative freeRugen M Raymond Work Phone: mp013-5851EV-CmlyuMayo Clinic Hospital 250 DO Work Phone: [phone]) [phone]ivcdik virus vaccine, unspecified formulationRugen M Raymond Work Phone: mp542-8339NL-QqnlpMayo Clinic Hospital 250 DO Work Phone: [phone], injectable,quadrivalent, preservative free, pediatricParito Irma Other [place] [employer] Other [id number], injectable, quadrivalent, contains preservativeRugen M Raymond Work Phone: mp700-6800NG-XvvzwB[place] [address] [address] DO Work Phone: 1(114) 272-249210748520-08-8495jivzqnfqa virus vaccine, unspecified formulationRugen M Lois Work Phone: mp441-9196YM-EckulB[place] [address] DO Work Phone: [phone], injectable, quadrivalent, preservative freeRugen M Raymond Work Phone: mp847-4863TF-IpqchB[place] V[place] [address] DO Work Phone: [phone]) 409-844401407820-48-6566lvjkbrngt, injectable, quadrivalent, contains preservativeRugen M Lois Work Phone: [phone]-YvrfsB[place] [address] DO Work Phone: Payers DatePayer CategoryPayerWellspan Chambersburg Hospital [id number] Care (Private)[facility] [id number] Care O (unspecified)[employer] [id number]sdc Health InsuranceAETNA [facility] [id number] 2014-Present [address] [place] [id number]uyv [id number] 2.0.1.110190.3.57[id number] 2.0.1.359912.3.57[id number] 2..1.319592.3.57[id number] 2.0.1.853683.3.57[id number] 2.0.1.984108.3.579.[id number] 2.0.1.977566.3.579.2.679509-21-5431Kimizlq7065103 2.0.1.786370.3.57[id number] 2.0.1.749137.3.579.2.486361-24-7535Lyfzjvi Health [id number] 30-79-4938Bafo-payPrivate Health [id number] 2.0.1.947352.19 UnknownAETNA Social History DateTypeDetailFacilityStart: 01-11-2024 End: 81-94-8348Zd illicit drug useNo illicit drug use-[facility] [place] [address] DO Work Phone: Comment on above:occasionally;1 sometimes 2 cups coffee in the morning;Quit 03/2018 1/2 ppd;Start: 01-11-2024 End: 58-08-2364Ydb Assigned At [facility] [employer] Other Start: 09-05-2023 End: 98-46-1081Qibzrjx smoking status NHISEx-smokerUnThe [facility]Health System Work Phone: History of tobacco useCurrent smokerUnThe [facility] System Work Phone: History of tobacco useCigarette SmokerUnThe MetroHealth System Work Phone: Start: 01-11-2024 End: 05-13-2104Fnlfndm intakeCurrent drinker of alcohol (finding)[facility] Work Phone: Start: 94-77-7776Okl Assigned At BirthNot on file [facility] Work Phone: Start: 01-01-2024 End: 30-47-4815Hgusefpt to SARS-CoV-2 (event)Not sureSelect Medical Specialty Hospital - [facility] SouthStart: 20-79-5990Xfybwjx use and exposureFormer smokeless tobacco user [facility] HealthcareHow often to you have a drink containing alcohol?Monthly or less [facility] HealthcareHow many standard drinks containing alcohol do you have on a typical day?1 or 2N[facility] HealthcareHow often do you have 6 or more drinks on 1 occasion?NeverNOMS HealthcareStart: 93-58-7630Uifmjtq CommentTobacco Control 07/24/2020: Last smoked: 1-5 years agoNOMS HealthcareStart: 40-93-4172Lfghhla CommentAudit-C 08/23/2022: No alcoholic drinks consumed in the past year; Caffeine Intake 1-2 cup\s per dayNOMA HealthcareStart: 03-30-8836Ris assigned at birthFemalHuntsman Mental Health Institute HealthcareStart: 13-22-8520Jacuuo identityIdentifies as female gender (finding)[facility] HealthcareStart: 21-90-1883Dlqaqx orientationHeterosexual (finding)[facility] HealthcareStart: 05-18-9636OsrGrjsdfXZDK HealthcareStart: 20-08-8170QlbUyqbov (finding)[facility] Functional Status FezzEqgyldyjpiHqsvuoFtfunbmn27-24-2478Ngqbjeparm /100 08/20/2025 3:58 PM EST Mercedes Ventura LPN 158/100UnThe [facility] Work Phone: [phone] 472-13661560835-46-8863Xdsnh signs64 08/20/2025 3:58 PM EST Mercedes Ventura LPNUnThe MetroHealth System Work Phone: Clinical Notes 05-17-2007 to 08-20-2025 Note Date & [id number] Evaluation + Plan note* Assessment & Plan Note - MATTIE Choudhary - 08/20/2025 4:23 PM ESTAssociated Problem(s): BMI 27.0-27.9,adult Reviewed the merits of healthy lifestyle choices on overall cardiovascular health. [facility] Work Phone: 1(117) 434-326911-04-2025 Miscellaneous Notes* Assessment & Plan Note - MATTIE Choudhary - 08/20/2025 4:23 PM ESTAssociated Problem(s): BMI 27.0-27.9,adult Reviewed the merits of healthy lifestyle choices on overall cardiovascular health. documented in this encounterSelect [facility] Work Phone: 1([phone] 815-569911-04-2025 History of Present illness Narrative* MATTIE Choudhary - 08/20/2025 4:00 PM EST Chief Complaint Slightly my blood pressure seems up there Reason for Visit Patient presents to the office today for outpatient follow-up for hypertension. Last evaluated in clinic by Dr. Corral December 2023. Presents today ambulatory with steady gait. Accompanied by patient Patient denies any hospitalizations or significant changes to interval medical history since last office follow-up. She does not follow routinely with PCP. History of Present Illness Patient is a pleasant 50-year-old female who was referred to Dr. Corral December 2023 for blood pressure management. She presents to the office for she reports compliance with chlorthalidone and Cozaar, no recent labs. She has noted lately that her blood pressure is elevated at home, maybe a slight headache but no other complaints. 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 She does do houseworkand upstairs routinely at home. She sometimes has a little shortness of breath. There was 1 occasion when her Apple Watch picked up a high heart rate in the middle of the night, denies any routine palpitations. Her brother recently at the age of 58, he had a diagnosis of cardiac amyloid. Her mother is going to [place] to get genetic testing. Review of Systems Cardiovascular: Negative for chest pain, dyspnea on exertion, irregular heartbeat, leg swelling, near-syncope, orthopnea, palpitations, paroxysmal nocturnal dyspnea and syncope. Respiratory: Positive for shortness of breath. Visit Vitals BP (!) 158/100 (BP Location: Right arm, Patient Position: Sitting) Pulse 64 Ht 1.676 m (5' 6 ) Wt 76.1 kg (167 lb 12.8 oz) BMI 27.08 kg/m Smoking Status Former BSA 1.88 m Physical Exam Vitals and nursing note reviewed. HENT: Head: Normocephalic. Cardiovascular: Rate and Rhythm: Normal rate and regular rhythm. Heart sounds: Normal heart sounds. Pulmonary: Effort: Pulmonary effort is normal. Breath sounds: Normal breath sounds. Abdominal: Palpations: Abdomen is soft. Musculoskeletal: Right lower leg: No edema. Left lower leg: No edema. Skin: General: Skin is warm and dry. Neurological: General: No focal deficit present. Mental Status: She is alert. Psychiatric: Mood and Affect: Mood normal. Behavior: Behavior normal. ALLERGIES: Oxycodone-acetaminophen Current Outpatient Medications Medication Instructions amLODIPine (NORVASC) 5 mg, oral, Daily chlorthalidone (HYGROTON) 25 mg, oral, Daily estradiol (Estrace) 1 mg tablet 1 tablet, Daily losartan (COZAAR) 50 mg, oral, Daily Assessment: Hypertension: Suboptimal control currently on chlorthalidone 25 daily and Cozaar 50 mg daily. Originally referred to Dr. Corral December 2023 for hypertension management. Denies renal artery ultrasound. She does try to monitor her sodium intake. Family history of cardiac amyloid and her brother who at the age of 58. She reports some mild shortness of breath with activity like walking up the stairs, denies any dizziness or lightheadedness prior syncopal episode. Will check echocardiogram and EKG. She will get more information from her mother and I will contact the genetic counseling at for further recommendations. Isolated episode of palpitations: 1 cup of coffee daily, social alcohol intake, no prior obstructive sleep apnea testing. No prior history of arrhythmia. Reports recent weight loss of about 15-20 pounds (question of related to increased stress caring for her elderly parents) December 2020 MPI no ischemia, LVEF 60%. Plan: Through informed decision making process incorporating patients unique circumstances, the followingtreatment plan will be initiated: 1. Prescription drug management of cardiovascular medication for efficacy, adherence to treatment, side effect assessment and polypharmacy. Current treatment clinically warranted and to continue withfollowing modifications: - Add amlodipine 5mg daily 2. Echocardiogram ( HTN, family history of amyloid) & ECG 3. Calcium score (family hx, shortness of breath) 4. Labs (chem6, TSH, lipids) 5. Return for follow-up; in the interim, contact the office if new symptoms arise. [employer]TER [employer] after testing Aldo Pope MSN, AVIATION NEUROPSYCHOLOGIST-CONSULTING PROPERTY MANAGER, PMHNP-[facility] [place], [place] Please excuse any errors in grammar or translation related to this dictation. Voice recognition software was utilized to prepare this document. documented in this [facility] Work Phone: 1([phone]) 330-836711-04-2025 Instructions* Patient Instructions* MATTIE Choudhary - 08/20/2025 4:00 PM EST Please bring all medicines, vitamins, and herbal supplements with you when you come to the office. Prescriptions will not be filled unless you are compliant with your follow up appointments or have a follow up appointment scheduled as per instruction of your physician. Refills should be requested at the time of your visit. PLAN: Through informed decision making process incorporating patients unique circumstances, the followingtreatment plan will be initiated: 1. Prescription drug management of cardiovascular medication for efficacy, adherence to treatment, side effect assessment and polypharmacy. Current treatment clinically warranted and to continue withfollowing modifications: - Add amlodipine 5mg daily 2. Echocardiogram ( HTN, family history of amyloid) 3. Calcium score (family hx, shortness of breath) 4. Labs (chem6, TSH, lipids) 5. Return for follow-up; in the interim, contact the office if new symptoms arise. 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 Skin Check Location: Patient requests a full body skin examination Dermatologic history: history of Actinic Keratosis, history of atypical mole(s), no family history of melanoma Last visit: 2019 New patient All pertinent medical history, medications, and allergies were reviewed. General Exam: alert, oriented to person, place, and time, normal affect, well appearing Unaccompanied Areas not examined despite medical recommendation: Scalp, Examined Right leg Examined Head, Face Examined Left leg Examined Neck Examined Right foot Examined Chest Examined Left foot Examined Back Examined Buttocks Examined Patient kept underwear on Abdomen Examined Digits,nails: Examined Right arm Examined Patient wearing nail indonesian, Denies dark streaks under finger nails, Denies darkstreaks on toenails Left arm Examined Lymphatics: Not examined Hands Examined Skin Exam 1. MELANOCYTIC NEVUS OF FACE, OTHER LOCATION Left Ear Scattered benign appearing, regular brown to light brown melanocytic papules and macules with similar morphology Counseled regarding these benign growths. Rarely, a nevus can develop into malignant melanoma, so any changing nevi should be promptly re-evaluated. Recommended broad spectrum sunscreen with SPF 30 or higher, reapply every 2 hours and wear protective clothing when outdoors. 2. NEOPLASM OF UNSPECIFIED BEHAVIOR OF BONE, SOFT TISSUE, AND SKIN (2) Right Lower Back Irregularly pigmented papule Lesion biopsy Type of biopsy: tangential Informed consent: discussed and consent obtained Informed consent comment: The risks and benefits of the biopsy were discussed. Risks include but are not limited to bleeding, infection, scarring, pain, and nerve damage. An opportunity to ask questions prior to the procedure was permitted and all questions were answered. Patient was prepped and draped in usual sterile fashion: area cleansed with alcohol. Anesthesia: the lesion was anesthetized in a standard fashion Anesthetic: 1% lidocaine w/ epinephrine 1-100,000 buffered w/ 8.4% NaHCO3 Instrument used: DermaBlade Hemostasis achieved with: electrodesiccation Outcome: patient tolerated procedure well Outcome comment: The specimen was placed in a prelabeled formalin container to be sent for pathology Post-procedure details: sterile dressing applied and wound care instructions given Post-procedure details comment: Emphasized need to contact clinic for any signs of infection, uncontrollable bleeding, or complications. Dressing type: bandage Additional details: Photo taken Amount of lidocaine used: 1.0 cc Specimen A - Dermatopathology exam Differential Diagnosis: dysplastic nevus vs other Check Margins: No Size of lesion: 1.1 x 0.6 cm (D49.2) Neoplasm of unspecified behavior of bone, soft tissue, and skin Plan: Lesion biopsy mid back Irregularly pigmented papule Lesion biopsy Type of biopsy: tangential Informed consent: discussed and consent obtained Informed consent comment: The risks and benefits of the biopsy were discussed. Risks include but are not limited to bleeding, infection, scarring, pain, and nerve damage. An opportunity to ask questions prior to the procedure was permitted and all questions were answered. Patient was prepped and draped in usual sterile fashion: area cleansed with alcohol. Anesthesia: the lesion was anesthetized in a standard fashion Anesthetic: 1% lidocaine w/ epinephrine 1-100,000 buffered w/ 8.4% NaHCO3 Instrument used: DermaBlade Hemostasis achieved with: electrodesiccation Outcome: patient tolerated procedure well Outcome comment: The specimen was placed in a prelabeled formalin container to be sent for pathology Post-procedure details: sterile dressing applied and wound care instructions given Post-procedure details comment: Emphasized need to contact clinic for any signs of infection, uncontrollable bleeding, or complications. Dressing type: bandage Additional details: Photo taken Amount of lidocaine used: 1.0 cc Specimen B - Dermatopathology exam Differential Diagnosis: Dysplastic nevus vs other Check Margins: No Size of lesion: 0.6 x 0.4 cm (D49.2) Neoplasm of unspecified behavior of bone, soft tissue, and skin Plan: Lesion biopsy, Lesion biopsy Shave biopsy today, see procedure note. Patient will be notified of results. Follow up pending biopsy results. Next Visit: pending bx results, Recommended yearly skin exams documented in this encounterUniversity Health Truman Medical [id number] History of Present illness Narrative* Branden Perez, - 09/19/2024 2:15 PM EST Images from the original note were not included. Branden Perez, Obstetrics and Gynecology Nicolette S Geovanni 1975 09/19/24 [id number] Yearly Wellness Exam Chief Complaint Patient presents with Gynecologic Exam Pt presents for yearly/pap test. Tuesday/Tuesday this week when she wiped she had very light bleeding. Does not recall her LMP. Testing for hormones?? No breast,bowel,bladder problems. Visit Vitals BP 118/90 Wt 168 lb LMP (LMP Unknown) BMI 28.39 kg/m OB Status Implant Smoking Status Former BSA 1.86 m History of Present Illness Current Outpatient Medications Medication Sig Dispense Refill estradiol (Estrace) 1 MG tablet Take 1 tablet (1 mg) by mouth Daily 90 tablet 3 hydroCHLOROthiazide (HYDRODiuril) 25 MG tablet Take 25 mg by mouth in the morning. Levonorgestrel (LILETTA, 52 MG, IU) Liletta (52 MG) losartan (Cozaar) 50 MG tablet Take 50 mg by mouth in the morning. No current facility-administered medications for this visit. Allergies Allergen Reactions Oxycodone-Acetaminophen Other Reaction(s): itching Past Medical History: Diagnosis Date Abnormal Pap smear of cervix COVID-19 09/23/2021 Delivery of LVB 8# 10oz Extremely dense tissue on mammography Hypertension (CMS/HCC) Right humeral fracture 2002 Fracture Rt arm - plates Past Surgical History: Procedure Laterality Date FOREIGN BODY REMOVAL 2011 IUD removed HUMERUS FRACTURE SURGERY W/ IMPLANT Right 2003 Plates INTRAUTERINE DEVICE INSERTION 2011 INTRAUTERINE DEVICE INSERTION 06/2017 Liletta IUD insetion RIB FRACTURE SURGERY Left 2012 Fell, broke ribs on left STRESS TEST EXERCISE 12/2020 Normal TONSILLECTOMY OB History Para Term AB Living 3 3 SAB IAB Ectopic Multiple Live Births 3 # Outcome Date [place] Lbr [place]/2nd Weight Sex Type Anes PTL Lv 3 8 lb 10 oz 2 1 Obstetric Comments Pap 08/24/22- Neg ; 01/26/21 neg, HPV neg; Colposcopy 07/24/20 -CIN1; 06/26/20- Neg; HPV positive 18/45 Cologuard 10/21/23- Neg Mammogram 12/01/22- Neg Liletta inserted 06/2017 ROS General: Denies fevers/chills Eyes: Denies vision changes ENT: Denies neck stiffness, neck mass Endocrine: Denies polydipsia and polyuria Respiratory: Denies shortness of breath Cardiovascular: Denies chest pain and palpitations Gastrointestinal: Denies changes in bowel habits, blood in stool, constipation and diarrhea. Hematology: Denies easy bruising. Women Only: Denies breast masses, skin changes, nipple discharge, abnormal bleeding, pelvic pain and dyspareunia Genitourinary: Denies dysuria, pelvic pain and nocturia Skin: Denies rashes/lesions Neurologic: Denies headaches, dizziness, syncope Psychiatric: Denies hallucinations, suicidal ideas EXAM GENERAL EXAMINATION: Alert, oriented, well developed, well nourished. HEAD: Normocephalic, atraumatic. EYES: MARIA ELENA, sclera anicteric. EARS: No obvious hearing deficit. NECK/THYROID: Neck supple no cervical lymphadenopathy no thyromegaly. LYMPH NODES: No axillary, supraclavicular or inguinal adenopathy. SKIN: Warm and dry. No rashes HEART: Regular rate and rhythm. No murmur LUNGS: Clear to auscultation bilaterally. CHEST: Axillary nodes grossly normal. BREASTS: No dominant masses palpable bilaterally, no skin changes, nipple discharge, supra-clavicular or axillary adenopathy ABDOMEN: Soft, nontender, nondistended, no hernia or masses palpable. BACK: No obvious scoliosis/kyphosis. FEMALE GENITOURINARY: Logistics Clerk in room-EFG without sores/lesions, normal vaginal mucosa-+cowart frothy discharge, no blood, cervix without lesions, IUD strings visualized at cervical os, uterus AV, NSSC, no adnexal masses, cul-de-sac negative. EXTREMITIES No edema. NEUROLOGIC: Alert and oriented. PSYCH: Cooperative with exam. ICD-10-CM 1. Encounter for gynecological examination with abnormal finding Z01.411 2. Encounter for screening mammogram for malignant neoplasm of breast Z12.31 Bilateral screening mammogram with tomosynthesis 3. Screening for malignant neoplasm of cervix Z12.4 IGP, APT HPV,RFX 16/18,45 IGP, APT HPV,RFX 16/18,45 4. Screening for HPV (human papillomavirus) Z11.51 IGP, APT HPV,RFX 16/18,45 IGP, APT HPV,RFX 16/18,45 5. Intrauterine device surveillance Z30.431 IGP, APT HPV,RFX 16/18,45 IGP, APT HPV,RFX 16/18,45 6. Postmenopausal HRT (hormone replacement therapy) Z79.890 estradiol (Estrace) 1 MG tablet 7. Vaginal discharge N89.8 POCT trichomonas manually resulted 8. BV (bacterial vaginosis) N76.0 B96.89 Advised pt to perform monthly self breast exams. Encouraged calcium and Vitamin D intake. Doing well on Estradiol tablets, does have intermittent mild night sweats but overall hot flashes are well controlled. Liletta IUD inserted 06/2017- amenorrhea, small blood noted when wiping very occasionally. Advised IUD approved for 8 years and if bleeding returns or if hot flashes become bothersome can remove (change Estradiol to combination medication with progesterone) or replace IUD. Advised checking hormone levels will likely not help at this time as her hormones are still waxing and waning. Will plan to keep IUD in for now and stay on Estradiol tablets. Cologuard up to date. Mammogram due, ordersent. Denies any bowel or bladder issues. Discharge noted on exam. Wet prep- BV. Will rx Flagyl, advised no alcohol. She will return in 1 year for annual exam. Entered by Monica Silva LPN acting as scribe for Dr. Branden Perez. Signature: Monica Silva LPN The documentation recorded by the scribe accurately reflects the service(s) I personally performed and the decisions I made. Signature: Branden Perez DO Assessment & Plan documented in this encounterUniversity Health Truman Medical [id number] History of Present illness Narrative* Hanny Bobby MD - 01/11/2024 3:50 PM EDT Subjective Nicolette Brady is a 48 y.o. female Chief Complaint Follow-up HPI Review of Systems All other systems reviewed and are negative. Discussed blood pressure management. Her brother in [facility] has amyloidosis. Patient returns in follow-up of problems as noted. She is done well. He has no Problems or complaints pertaining to her antihypertensive regimen and overall good. She is doing well. Because of all the above we advocate continued therapy as before without change. She is happy to do so. She was educated regarding cardiac signs and symptoms watch for and encouraged to call if they arise. Vitals: 01/11/24 1602 BP: 124/88 BP Location: Right arm Patient Position: Sitting Pulse: 78 Weight: 73.9 kg (163 lb) Height: 1.676 m (5' 6 ) Objective Physical Exam Constitutional: Appearance: Normal appearance. HENT: Nose: Nose normal. Neck: Vascular: No carotid bruit. Cardiovascular: Rate and Rhythm: Normal rate. Pulses: Normal pulses. Heart sounds: Normal heart sounds. Pulmonary: Effort: Pulmonary effort is normal. Abdominal: General: Bowel sounds are normal. Palpations: Abdomen is soft. Musculoskeletal: General: Normal range of motion. Cervical back: Normal range of motion. Right lower leg: No edema. Left lower leg: No edema. Skin: General: Skin is warm and dry. Neurological: General: No focal deficit present. Mental Status: She is alert. Psychiatric: Mood and Affect: Mood normal. Behavior: Behavior normal. Thought Content: Thought content normal. Judgment: Judgment normal. Allergies Oxycodone-acetaminophen Current Medications Current Outpatient Medications: chlorthalidone (Hygroton) 25 mg tablet, Take 1 tablet (25 mg) by mouth once daily., Disp: , Rfl: estradiol (Estrace) 1 mg tablet, Take 1 tablet (1 mg) by mouth once daily., Disp: , Rfl: losartan (Cozaar) 50 mg tablet, Take 1 tablet (50 mg) by mouth once daily., Disp: , Rfl: Assessment/Plan 1. Benign essential hypertension 2. Mixed hyperlipidemia 3. BMI 26.0-26.9,adult 4. Former smoker Scribe Attestation By signing my name below, I, Magui Granados LPN , Scribe attest that this documentation has been prepared under the direction and in the presence of Anny Bobby MD. Provider Attestation - Scribe documentation All medical record entries made by the Scribe were at my direction and personally dictated by me. Ihave reviewed the chart and agree that the record accurately reflects my personal performance of the history, physical exam, discussion and plan. documented in this encounterSelect [facility] Work Phone: 1([phone]) 328-302003-27-2024 Instructions* Patient Instructions* Magui Markham LPN - 01/11/2024 3:50 PM EDT Please bring all medicines, vitamins, and herbal supplements with you when you come to the office. Prescriptions will not be filled unless you are compliant with your follow up appointments or have a follow up appointment scheduled as per instruction of your physician. Refills should be requested at the time of your visit. BMI was above normal measurement. Current weight: 73.9 kg (163 lb) Weight change since last visit (-) denotes wt loss -4 lbs Weight loss needed to achieve BMI 25: 8.4 Lbs Weight loss needed to achieve BMI 30: -22.5 Lbs Provided instructions on dietary changes Provided instructions on exercise Advised to Increase physical activity. documented in this encounterSelect [facility] Work Phone: 1(129) 915-345106-15-2022 Evaluation note* Encounter Date Diagnosis Assessment Notes Treatment Notes Treatment Clinical Notes Mar, Travel advice encounter (ICD-10 - Z71.84) Slinky Other 03-21-2022 History of Present illness Narrative* Patient returns in follow-up of problems as noted. She is done well. Blood pressure control continues to be excellent. Last year we did a lipid profile and lipids were elevated and we recommended statin therapy but she declined. This was discussed in great detail today she is more amenable and/or willing to implement lipid-lowering therapy. The merits of treating her lipids were discussed and explained in great detail. She has a 52-year-old brother has had several heart attacks and I use this as an example as to why we need to aggressively treat risk factors including her hypertension and hyperlipidemia. She is willing to initiate statin therapy. She does, though, wished us to perform a lipid profile before initiating statin therapy. We will do so but I advised her that more than likely we will contact her and advised lipid- lowering therapy. * We also advocated diet exercise weight loss as a means to favorably improve her risk profile. She understands her recommendations and will attempt to implement them. [facility] [address] DO Work Phone: 1(231) 698-541408-01-2007 History general Narrative - Reported* Type Description Date Medical History Mirena IUD 2011 Medical Historymirena IUD inserted 2006Medical HistoryFracture rt arm-plates(2002)Medical HistoryTonsillectomyMedical HistoryLVB 8#10ozMedical HistoryExtremely dense breastsMedical HistoryHTNSurgical HistoryProcedure:IUD removed;Disease:2011Surgical HistoryProcedure:Mirena IUD insertion;Disease:[id number] HistoryProcedure:fell broke ribs on left;Disease:2012Surgical HistoryProcedure: Liletta IUD insertion-2016Surgical HistoryRight humerus Slinky Other Evaluation note* Diagnosis Benign essential hypertension- Primary Essential hypertension, benign Mixed hyperlipidemia BMI 26.0-26.9,adult Former smoker Personal history of tobacco use, presenting hazards to health documented in this encounter [facility] Work Phone: Evaluation note* Diagnosis Encounter for gynecological examination with abnormal finding Encounter for screening mammogram for malignant neoplasm of breast Screening for malignant neoplasm of cervix Screening for malignant neoplasm of the cervix Screening for HPV (human papillomavirus) Special screening examination for human papillomavirus (HPV) Intrauterine device surveillance Postmenopausal HRT (hormone replacement therapy) Need for prophylactic hormone replacement therapy (postmenopausal) Vaginal discharge Leukorrhea, not specified as infective BV (bacterial vaginosis) Unspecified vaginitis and vulvovaginitis documented in this encounter [facility] Diagnosis Melanocytic nevus of face, other location- Primary Neoplasm of unspecified behavior of bone, soft tissue, and skin documented in this encounter [facility]* Diagnosis Benign essential hypertension- Primary Essential hypertension, benign BMI 27.0-27.9,adult Essential (primary) hypertension Unspecified essential hypertension documented in this encounter [facility] Work Phone: History of Present illness NarrativePatient returns in follow-up of problems as noted. Doing well on current therapy and because of this we suggest continued therapy as is. I cannot elicit from her any angina CHF arrhythmia or other neurologic symptomatology. She is active with no complaints or symptoms. She has been dieting and thiswas discussed in detail and she is congratulated on her efforts. Risk factors appear to be well controlled because of this we suggest no change. I do recommend, though, chemistries to evaluate electrolyte balance because of her current therapy and also a reassessment of lipids to determine if intervention is necessary. Otherwise we will plan to see her in a year.-[facility] [address] DO Work Phone: Reason for referral (narrative)* Consultation (Routine) - AuthorizedSpecialtyDiagnoses / ProceduresReferred By Contact Referred To ContactCardiology Diagnoses Benign essential hypertension Procedures Follow Up In Cardiology Hanny Bobby MD [address] [facility] [address] [address] Hanny Bobby MD [address], [address] [address] Referral IDStatusReasonStart DateExpiration DateVisits RequestedVisits [id number]/27/20243/ [facility] Work Phone: Summary Purpose Family History No Family History Records FoundUnknown Family Member Name Dates Details Family history of hypertensi on: Mother(V17.49, Z82.49) Status:ActiveFamily history of myocardial infarction: Brother(V17.3, Z82.49) Status:ActiveHigh serum cholestanol: Brother Status:Active Unknown Family Member Name Dates Details Family history of hypertensi on: Mother(V17.49, Z82.49) Status:ActiveFamily history of myocardial infarction: Brother(V17.3, Z82.49) Status:ActiveHigh serum cholestanol: Brother Status:Active Unknown Family Member Name Dates Details Family history of hypertensi on: Mother(V17.49, Z82.49) Status:ActiveFamily history of myocardial infarction: Brother(V17.3, Z82.49) Status:ActiveHigh serum cholestanol: Brother Status:Active Unknown Family Member Name Dates Details Family history of hypertensi on: Mother(V17.49, Z82.49) Status:ActiveFamily history of myocardial infarction: Brother(V17.3, Z82.49) Status:ActiveHigh serum cholestanol: Brother Status:Active Advance Directives No Advanced Directives Records FoundNo Advanced Directives Records FoundNo Advanced Directives Records FoundNo Advanced Directives Records FoundNo Advanced Directives Records FoundNo Advanced Directives Records FoundNo Advanced Directives Records Found Chief Complaint NICOLETTE BRADY is being seen for a 8 month follow-up of.NICOLETTE BRADY is being seen for an annual follow-up of. Additional Source Comments INFORMATION SOURCE (unrecogn ized section and content) DATE CREATED AUTHOR 04/07/2018 [facility] DATE CREATED AUTHOR AUTHOR'S ORGANIZ ATION 01/01/2021 [facility] DATE CREATED AUTHOR AUTHOR'S ORGANIZ ATION 12/19/2022 [facility] DATE CREATED AUTHOR AUTHOR'S ORGANIZ ATION 01/04/2023 [facility] DATE CREATED AUTHOR AUTHOR'S ORGANIZ ATION 01/04/2023 [employer] DATE CREATED AUTHOR AUTHOR'S ORGANIZ ATION 06/19/2025 [facility] DATE CREATED AUTHOR AUTHOR'S ORGANIZ ATION 08/24/2025 [facility] REASON FOR VISIT (unrecogniz ed section and content) ReasonCommentsFollow-up1 yearReasonCommentsGynecologic ExamPt presents for yearly/pap test. Tuesday/Tuesday this week when she wiped she had very light bleeding. Does not recall her LMP. Testing for hormones?? No breast,bowel,bladder problems.ReasonCommentsSkin CheckReasonCommentsFollow-up Patient here for 1 year follow up for hypertension, c/o elevated blood pressures with headache.SpecialtyDiagnoses / ProceduresReferred By ContactReferred To ContactCardiology Diagnoses Benign essential hypertension Procedures Follow Up In Cardiology Hanny Bobby MD McGuinn, William P, MD Retired From Practice Referral IDStatusReasonStart DateExpiration DateVisits RequestedVisits [id number]/27/20243/27/202511 Care Teams (unrecognized sec tion and content) Team MemberRelationshipSpecialtyStart DateEnd Date Sanjuana Abreu MD [address] [facility] [address] [place] [address] PCP - General12/30/20Team MemberRelationshipSpecialtyStart DateEnd Date Sanjuana Abreu MD [address] [facility] [address] [place] [address] PCP - GeneralFamily Medicine02/22/23Team MemberRelationshipSpecialtyStart DateEnd Date Sanjuana Abreu MD [address] [facility] [address] [place] [address] PCP - GeneralFamily Medicine02/22/23Team MemberRelationshipSpecialtyStart DateEnd Date Sanjuana Abreu MD [address] [facility] [address] [place] [address] PCP - GeneralFamily Medicine02/22/23Te MemberRelationshipSpecialtyStart DateEnd Date Sanjuana Abreu MD [address] [facility] [address] [place] [address] PCP - [facility]02/22/23Te MemberRelationshipSpecialtyStart DateEnd Date Sanjuana Abreu MD [address] [facility] [address] [place] [address] PCP - [facility]02/22/23Te MemberRelationshipSpecialtyStart DateEnd Date Sanjuana Abreu MD 112 [facility] [address] [place] [address] [facility]12/30/20 FOR RECORDS PERTAINING TO PATIENTS WHO ARE OR HAVE BEEN ENROLLED IN A CHEMICAL DEPENDENCY/SUBSTANCEABUSE PROGRAM, SOME INFORMATION MAY BE OMITTED. This clinical summary was aggregated from multiple sources. Caution should be exercised in using it in the provision of clinical care. This summary normalizes information from multiple sources, and as a consequence, information in this document may materially change the coding, format and clinical context of patient data. In addition, data may be omitted in some cases. CLINICAL DECISIONS SHOULD BE BASED ON THE PRIMARY CLINICAL RECORDS. [facility] [employer] [facility]. provides no warranty or guarantee of the accuracy or completeness of information in this document.
[2025-09-03 09:26] LABS: Anion Gap 12.1; Blood Urea Nitrogen 19.0 mg/dL (7.0-18.0); Calcium 9.0 mg/dL (8.5-10.1); Carbon Dioxide 30.5 mmol/L (21.0-32.0); Chloride 105 mmol/L (98-107); Cholesterol 264 mg/dL (<=200); Estimated GFR (African America >60 (>=60 mL/min/1.73m^2); Estimated GFR (Non-African Ame >60 (>=60 mL/min/1.73m^2); Glucose 105 mg/dL (74-106); HDL Cholesterol 71 mg/dL (40-60); Potassium 3.6 mmol/L (3.5-5.1); Sodium 144 mmol/L (136-145); Thyroid Stimulating Hormone 1.051 uIU/mL (0.358-3.740); Triglycerides 71 mg/dL (<=150); VLDL CHOLESTEROL 14.2 mg/dL
== END 2025-09-03 08:45 | disposition home or self-care (01) ==
LOC: LAB 08:46
PROVIDERS: PCP Family Medicine; Visit Provider Nurse Practitioner
DX: I10 Essential (primary) hypertension (principal); Z68.27 Body mass index [BMI] 27.0-27.9, adult
CPT/HCPCS: 36415; 80048; 80061; 84443

== ENCOUNTER 2025-10-02 06:56 | Outpatient (OUT) | payer OTHER, SELFPAY ==
--- OUTSIDE RECORDS SUMMARY | 2025-09-23 16:15 | XMS_ITS | Encounter Summary ---
Author Organization [facility] Address [address] [place] [address] Phone Care Team Providers Care Art Framing Manager Name Role Phone Sanjuana Hollingsworth MD Primary Care Provider [phone] Reason for Visit * Imaging (Routine) - Pending ReviewSpecialtyDiagnoses / ProceduresReferred By ContactReferred To ContactRadiology Diagnoses Benign essential hypertension Procedures CT cardiac scoring wo IV contrast Sheyla Pope, AIR TRAFFIC SUPERVISOR-TOOL REPAIR TECHNICIAN [address] [address], [facility] [address] [place] [address] Phone: tel: fax: Referral IDStatusReasonStart DateExpiration DateVisits RequestedVisits [id number] Review Perform Procedure Encounter Details DateTypeDepartmentCare Team (Latest Contact Info)Wrophsbbvys01/08/2025 4:15 PM ESTAncillary Procedure [address] [id number] Benign essential hypertension Social History Tobacco UseTypesPacks/DayYears UsedDateSmoking Tobacco: FormerCigarettesAlcohol UseStandard Drinks/WeekCommentsYes4 (1 standard drink = 0.6 oz pure alcohol) CommentsUnknownSex and Gender InformationValueDate RecordedSex Assigned at BirthNot on fileLegal YxdJsgybp44/26/2022 2:39 PM ESTGender IdentityNot on fileSexual OrientationNot on filedocumented as of this encounter Plan of Treatment DateTypeDepartmentCare Team (Latest Contact Info)Mzoxzbjaawh47/16/2026 8:00 AM EDTOffice Visit [facility] [address] [place] [address] Sheyla Pope, AIR TRAFFIC SUPERVISOR-TOOL REPAIR TECHNICIAN [address] [place] [address] documented as of this encounter Procedures Procedure NamePriorityDate/TimeAssociated DiagnosisCommentsCT CARDIAC SCORING WO IV WEYDXNZPEpfboav14/08/2025 4:18 PM EST Benign essential hypertension documented in this encounter Results * CT cardiac scoring wo IV contrast (09/23/2025 4:18 PM EST)Anatomical Region LateralityModalityThoracic, ChestComputed TomographySpecimen (Source) Anatomical Location / LateralityCollection Method / VolumeCollection Time Received Time09/24/2025 9:15 AM EST09/24/2025 9:15 AM EST Impressions 09/24/2025 9:13 AM EST 1. Coronary artery calcium score of 0*. ?? *Coronary artery calcium scoring may be helpful in predicting the risk for future coronary heart disease events. ??According to the [employer] Clinical Expert Consensus Task Force, such testing provides important prognostic information in patients with more than one coronary heart disease risk factor. The coronary artery calcium score correlates with the annual risk of a non-fatal myocardial infarction or coronary heart disease . ?? Coronary artery score ?Annual Risk ?? 0-99 ? 0.4% 100-399 ?1.3% >400 2.4% ?? These three breakpoints correspond to lower, intermediate and high risk states for future coronary events. ??Such information should be used, along with appropriate clinical judgment, to make decisions regarding the intensity of risk factor management strategies to treat blood lipids and to modify other non-lipid coronary risk factors. ?? Reference: Walt P et al. Circulation. ??2007; 115:402-426 ?? MACRO: None. ?? Signed by: Tj Leslie 09/24/2025 9:13 AM Dictation workstation: ?? [id number] Narrative 09/24/2025 9:13 AM EST Interpreted By: Tj Leslie, STUDY: CT CARDIAC SCORING WO IV CONTRAST; ??09/23/2025 4:18 pm ?? INDICATION: Signs/Symptoms:shortness of brain. ?? COMPARISON: None. ?? ACCESSION NUMBER(S): [id number] ?? ORDERING CLINICIAN: SHEYLA POPE ?? TECHNIQUE: Using prospective ECG gating, CT scan of the coronary arteries was performed without intravenous contrast. Coronary calcium scoring ??was performed according to the method of Agatston. ?? FINDINGS: The score and distribution of calcium in the coronary arteries is as follows: ?? LM: 0. LAD: 0. LCx: 0. RCA: 0. ?? Total: 0. ?? The visualized segments of the lungs are normally expanded. ?? The visualized mid/lower ascending thoracic aorta measures 3.4 cm in diameter. ?? The heart is normal in size. No pericardial effusion is present. ?? No gross evidence of mediastinal or hilar lymphadenopathy is identified. ?? Procedure Note Tj Leslie MD - 09/24/2025 Interpreted By: Tj Leslie, STUDY: CT CARDIAC SCORING WO IV CONTRAST; 09/23/2025 4:18 pm INDICATION: Signs/Symptoms:shortness of brain. COMPARISON: None. ACCESSION NUMBER(S): [id number] ORDERING CLINICIAN: SHEYLA POPE TECHNIQUE: Using prospective ECG gating, CT scan of the coronary arteries was performed without intravenous contrast. Coronary calcium scoring was performed according to the method of Agatston. FINDINGS: The score and distribution of calcium in the coronary arteries is as follows: LM: 0. LAD: 0. LCx: 0. RCA: 0. Total: 0. The visualized segments of the lungs are normally expanded. The visualized mid/lower ascending thoracic aorta measures 3.4 cm in diameter. The heart is normal in size. No pericardial effusion is present. No gross evidence of mediastinal or hilar lymphadenopathy is identified. IMPRESSION: 1. Coronary artery calcium score of 0*. *Coronary artery calcium scoring may be helpful in predicting the risk for future coronary heart disease events. According to the [employer] Clinical Expert Consensus Task Force, such testing provides important prognostic information in patients with more than one coronary heart disease risk factor. The coronary artery calcium score correlates with the annual risk of a non-fatal myocardial infarction or coronary heart disease . Coronary artery score Annual Risk 0-99 0.4% 100-399 1.3% >400 2.4% These three breakpoints correspond to lower, intermediate and high risk states for future coronary events. Such information should be used, along with appropriate clinical judgment, to make decisions regarding the intensity of risk factor management strategies to treat blood lipids and to modify other non-lipid coronary risk factors. Reference: [place] P et al. Circulation. 2007; 115:402-426 MACRO: None. Signed by: Tj Leslie 09/24/2025 9:13 AM Dictation workstation: [id number] Authorizing ProviderResult TypeResult StatusSheyla Pope AIR TRAFFIC SUPERVISOR-CNPIMG CT PROCEDURESFinal Result documented in this encounter Visit Diagnoses Diagnosis Benign essential hypertension Essential hypertension, benign documented in this encounter Care Teams Team MemberRelationshipSpecialtyStart DateEnd Date Sanjuana Hollingsworth MD [address] [address] [facility] - General12/30/20documented as of this encounter
--- OUTSIDE RECORDS SUMMARY | 2025-09-30 09:45 | XMS_ITS | Encounter Summary ---
Author Organization [facility] Address [address] [place] [address] Care Team Providers Care Kiln Drawer Name Role Phone Sanjuana Hollingsworth MD Primary Care Provider [phone] Reason for Visit * ReasonCommentsGynecologic ExamPt presents for yearly. Pt denies problems with breast,bowel,bladder,calender operator helper/ Encounter Details DateTypeDepartmentCare Team (Latest Contact Info)Etzakbifwdn96/15/2025 9:45 AM ESTOffice Visit [facility] [place] [facility] [address] [facility] [address] [place] [phone] Branden Spencer DO [address] [facility] [address] [place] [address] Encounter for gynecological examination with abnormal finding; Encounter for screening mammogram for malignant neoplasm of breast; Intrauterine device surveillance; Postmenopausal HRT (hormone replacement therapy) Social History Tobacco UseTypesPacks/DayYears UsedDateSmoking Tobacco: FormerCigarettes Smokeless Tobacco: Former Comments:Tobacco Control 05/2020: Last smoked: 1-5 years ago Alcohol UseStandard Drinks/WeekCommentsYes4 (1 standard drink = 0.6 oz pure alcohol)Audit-C 08/23/2022: No alcoholic drinks consumed in the past year; Caffeine Intake 1-2 cup\s per dayAUDIT-CAnswerDate RecordedQ1: How often do you have a drink containing alcohol?Monthly or less09/05/2023Q2: How many drinks containing alcohol do you have on a typical day when you are drinking?1 or 2 09/05/2023Q3: How often do you have six or more drinks on one occasion?Never 09/05/2023CommentsNoSex and Gender InformationValueDate RecordedSex Assigned at CfwhwDhvifx18/15/2023 1:48 PM ESTLegal LmhOalugc41/15/2023 7:13 PM EDTGender PnuihpucFatynf71/15/2023 1:48 PM ESTSexual OrientationStraight 08/31/2023 1:48 PM ESTdocumented as of this encounter Last Filed Vital Signs Vital SignReadingTime TakenCommentsBlood Dxoynjvs34/7009/30/2025 9:53 AM EST Pulse--Temperature--Respiratory Rate--Oxygen Saturation--Inhaled Oxygen Concentration--Jxzljq19.3 kg (166 lb)09/30/2025 9:53 AM ZAWAdavad316.8 cm (5' 4.5 )09/30/2025 9:53 AM ESTBody Mass Index28.0509/30/2025 9:53 AM ESTdocumented in this encounter Progress Notes * Branden Spencer, DO - 09/30/2025 9:45 AM EST Images from the original note were not included. Branden Spencer, Obstetrics and Gynecology Dona Julian Geovanni 1975 09/30/2025 [id number] Yearly Wellness Exam Chief Complaint Patient presents with Gynecologic Exam Pt presents for yearly. Pt denies problems with breast,bowel,bladder,calender operator helper/ Visit Vitals BP 98/70 Ht 5' 4.5 Wt 166 lb BMI 28.05 kg/m?? OB Status Implant Smoking Status Former BSA 1.85 m?? History of Present Illness Current Outpatient Medications Medication Sig Dispense Refill amLODIPine (Norvasc) 5 MG tablet Take 5 mg by mouth Daily estradiol (Estrace) 1 MG tablet Take 1 [...] smear of cervix COVID-19 09/23/2021 Delivery [facility] LVB 8# 10oz Extremely dense tissue on mammography Hypertension Right humeral fracture 2003 Fracture Rt arm - plates Past Surgical History: Procedure Laterality Date FOREIGN BODY REMOVAL 2011 IUD removed HUMERUS FRACTURE SURGERY W/ IMPLANT Right 2002 Plates INTRAUTERINE DEVICE INSERTION 2011 INTRAUTERINE DEVICE [...] 10 oz 2 1 Obstetric Comments Pap 09/19/24- Neg, HPV Neg ; 01/26/21 neg, HPV neg; Colposcopy 07/24/20 -CIN1; 06/26/20- Neg; HPV positive 18/45 Cologuard 10/21/23- Neg Mammogram 09/26/24- Neg ([facility]) Liletta inserted 06/2017 ROS General: Denies fevers/chills [...] palpable. BACK: No obvious scoliosis/kyphosis. FEMALE GENITOURINARY: Consumer Experience Consultant in room-EFG without sores/lesions, normal vaginal mucosa-no abnormal discharge, cervix without lesions, IUD strings visualized at cervical os, uterus AV, small, no adnexal masses, cul-de-sac negative. EXTREMITIES No edema. NEUROLOGIC: Alert and oriented. PSYCH: Cooperative with exam. ICD-10-CM 1. Encounter for gynecological examination with abnormal finding Z01.411 2. Encounter for screening mammogram for malignant neoplasm of breast Z12.31 Bilateral screening mammogram with tomosynthesis 3. Intrauterine device surveillance Z30.431 4. Postmenopausal HRT (hormone replacement therapy) Z79.890 estradiol (Estrace) 1 MG tablet Advised pt to perform monthly self breast exams. Encouraged calcium and Vitamin D intake. Cologuardup to date. Mammogram due, order sent to [facility]. Doing well on Estradiol tablets, hot flashes still present but improved. Ronnetta IUD in place, has very sporadic and light bleeding only lasting a day at a time. Since she is doing well will plan to continue on Estradiol with IUD. Once IUD removed advised will need to add on oral progesterone. Encouraged to call office if hot flashes or bleeding worsen. Denies any breast bowel or bladder issues. Plan to return in 1 year for annual exam Entered by Monica Silva LPN acting as scribe for Dr. Branden Spencer. Signature: Monica Silva LPN The documentation recorded by the scribe accurately reflects the service(s) I personally performed and the decisions I made. Signature: Branden Spencer DO Assessment & Plan documented in this encounter Plan of Treatment DateTypeDepartmentCare Team (Latest Contact Info)Sevcjjrsdnh07/08/2026 3:30 PM ESTOffice Visit [facility] [place] [facility] [address] [place] [address] Eliana Braga, HOST/HOSTESS-DRIVER SERVICE TECHNICIAN [address] [place] [address] 06/17/2026 3:50 PM EDTOffice Visit [facility] [address] [place] [address] Omi Eliana A, HOST/HOSTESS-DRIVER SERVICE TECHNICIAN [address] [place] [address] 10/06/2026 9:00 AM ESTOffice Visit [facility] [address] [place] [address] Branden Spencer, [address] [place] [address] NameTypePriorityAssociated DiagnosesOrder ScheduleBilateral screening mammogram with tomosynthesisImagingRoutine Encounter for screening mammogram for malignant neoplasm of breast Expected: 09/30/2025, Expires: 12/01/2026documented as of this encounter Visit Diagnoses Diagnosis Encounter for gynecological examination with abnormal finding Encounter for screening mammogram for malignant neoplasm of breast Intrauterine device surveillance Postmenopausal HRT (hormone replacement therapy) Need for prophylactic hormone replacement therapy (postmenopausal) documented in this encounter Care Teams Team MemberRelationshipSpecialtyStart DateEnd Date Sanjuana Hollingsworth MD [address] [facility] [address] [place] [address] PCP - GeneralFamily Medicine02/22/23documented as of this encounter
--- OUTSIDE RECORDS SUMMARY | 2025-10-01 16:00 | XMS_ITS | Encounter Summary ---
Author Organization [facility] Address [address] [place] [address] Phone Care Team Providers Care Custom Dressmaker Name Role Phone Sanjuana Hollingsworth MD Primary Care Provider +1- [phone] Reason for Referral * Consultation (Routine) - AuthorizedSpecialtyDiagnoses / ProceduresReferred By ContactReferred To ContactCardiology Diagnoses Benign essential hypertension Procedures Follow Up In Cardiology Sheyla Pope APRN-CNP [address] [address], [place] [id number] Phone: tel: fax: Referral IDStatusReasonStart DateExpiration DateVisits RequestedVisits [id number]/[id number]/ Reason for Visit * ReasonCommentsFollow-up1 month Follow up to discuss testing results * Consultation (Routine) - AuthorizedSpecialtyDiagnoses / ProceduresReferred By ContactReferred To ContactCardiology Diagnoses Benign essential hypertension Procedures Follow Up In Cardiology Sheyla Pope APRN-CNP [address] [facility] [address], [address] [address] Phone: tel: fax: Referral IDStatusReasonStart DateExpiration DateVisits RequestedVisits [id number]/202511/ Encounter Details DateTypeDepartmentCare Team (Latest Contact Info)Ryldsxpouof81/16/2025 4:00 PM ESTOffice [facility] at [facility] [address] [facility] [address] [place] [address] Sheyla Pope APRN-CNP [address] [facility] [address] [place] [address] Mixed hyperlipidemia (Primary Dx); Benign essential hypertension; BMI 27.0-27.9,adult Discharge Disposition: Home Social History Tobacco UseTypesPacks/DayYears UsedDateSmoking Tobacco: FormerCigarettesQuit: 01/15/2017Smokeless Tobacco: NeverAlcohol UseStandard Drinks/WeekCommentsYes4 (1 standard drink = 0.6 oz pure alcohol)CommentsUnknownSex and Gender InformationValueDate RecordedSex Assigned at BirthNot on fileLegal SexFemale 09/11/2022 2:39 PM ESTGender IdentityNot on fileSexual OrientationNot on file documented as of this encounter Last Filed Vital Signs Vital SignReadingTime TakenCommentsBlood Obhafqda395/ 3:59 PM EST Uuqmo827510/01/2025 3:59 PM ESTTemperature--Respiratory Rate--Oxygen Saturation-- Inhaled Oxygen Concentration--Phwizl14.8 kg (165 lb)10/01/2025 3:59 PM ESTHeight 165.1 cm (5' 5 )10/01/2025 3:59 PM ESTBody Mass Index27.4610/01/2025 3:59 PM EST documented in this encounter Functional Status * BPAnswerDate of EdqmywmuieQeuqze791/7210/01/2025 3:59 PM Yeimy Alvarez LPN * PulseAnswerDate of BoknuckifvOzbxyc1794/16/2025 3:59 PM Yeimy Alvarez LPN documented as of this encounter Patient Instructions * Patient Instructions* MATTIE Choudhary - 10/01/2025 4:00 PM EST Please bring all medicines, [...] Current treatment clinically warranted and to continue without modifications. 2. Return for follow-up; in the interim, contact the office if new symptoms arise. CARD LACER 9 months documented in this encounter Plan of Treatment DateTypeDepartmentCare Team (Latest Contact Info)Cxhjrxjpaqh64/16/2026 8:00 AM EDTOffice Visit [facility] at [facility] [address] [facility] [address] [place] [phone] Sheyla Pope APRN-CNP [address] [facility] [address] [place] [address] documented as of this encounter Visit Diagnoses Diagnosis Mixed hyperlipidemia- Primary Benign essential hypertension Essential hypertension, benign BMI 27.0-27.9,adult documented in this encounter Care Teams Team MemberRelationshipSpecialtyStart DateEnd Date Sanjuana Hollingsworth MD [address] [facility] [address] [place] [address] PCP - General12/30/20documented as of this encounter
--- NOTE | 2025-10-02 06:59 | MM_ITS ---
Patient Name: NICOLETTE BRADY MR#: [id number] : 1975 Exam Date: 10/02/2025 Ordering Doctor: DR LUIS ANTONIO PEREZ RADIOLOGY REPORT PROCEDURE: MM TOMOSYNTHESIS SCREENING BI COMPARISON: MM TOMOSYNTHESIS SCREENING BI, 09/26/2024. MG MAMM SCREEN 3D JIM CAD, 12/01/2022. MG MAMM SCREEN 3D JIM CAD, 11/27/2021. MG MAMM JIM SCRN W CAD DIG, 10/16/2013. INDICATIONS: screening for malignant neoplasm of breast Calculator Name NCI Breast Cancer Risk Assessment Tool 5 Year Breast Cancer Risk 0.90% Lifetime Breast Cancer Risk 7.10% Personal Breast Cancer No Personal Ovarian Cancer No Treatments None Family Cancers None LOCATION: [facility] BREAST COMPOSITION: The breasts are extremely dense, which lowers the sensitivity of mammography. FINDINGS: RIGHT BREAST: No significant suspicious finding. LEFT BREAST: No significant suspicious finding. DIAGNOSTIC CATEGORY 1--NEGATIVE. RECOMMENDATIONS: ROUTINE MAMMOGRAM AND CLINICAL EVALUATION IN 12 MONTHS. Dictated by: Haris Mchugh DO on 10/02/2025 at 10:08 Approved by: Haris Mchugh DO on 10/02/2025 at 10:13
--- OUTSIDE RECORDS SUMMARY | 2025-10-02 06:59 | XMS_ITS | Encounter Summary ---
Author Organization [facility] Address [address] [place] [address] Phone Care Team Providers Care Photograph Developer Name Role Phone Sanjuana Hollingsworth MD Primary Care Provider +1- [phone] Encounter Details DateTypeDepartmentCare Team (Latest Contact Info)Quuccbamiql95/08/2025Travel Social History Tobacco UseTypesPacks/DayYears UsedDateSmoking Tobacco: FormerCigarettesAlcohol UseStandard Drinks/WeekCommentsYes4 (1 standard drink = 0.6 oz pure alcohol) CommentsUnknownSex and Gender InformationValueDate RecordedSex Assigned at BirthNot on fileLegal VlvZybaer78/26/2022 2:39 PM ESTGender IdentityNot on fileSexual OrientationNot on filedocumented as of this encounter Plan of Treatment DateTypeDepartmentCare Team (Latest Contact Info)Xmdkogrcbfo10/16/2026 8:00 AM EDTOffice Visit [facility] at [facility] [address] [facility] [address] [place] [address] Sheyla Pope, RESEARCH SUPPORT SPECIALIST-CHIEF AIRPORT GUIDE [address] [facility] [address] [place] [address] documented as of this encounter Visit Diagnoses Not on filedocumented in this encounter Care Teams Team MemberRelationshipSpecialtyStart DateEnd Date Sanjuana Hollingsworth MD [address] [place] [address] PCP - General12/30/20documented as of this encounter
--- OUTSIDE RECORDS SUMMARY | 2025-10-02 06:59 | XMS_ITS | Encounter Summary ---
Author Organization [facility] Address [address] [place] [address] Phone Care Team Providers Care Gate Supervisor Name Role Phone Sanjuana Hollingsworth MD Primary Care Provider +1- [phone] Encounter Details DateTypeDepartmentCare Team (Latest Contact Info)Ntvypmahlhu60/15/2025Travel Social History Tobacco UseTypesPacks/DayYears UsedDateSmoking Tobacco: FormerCigarettesQuit: 01/15/2017Alcohol UseStandard Drinks/WeekCommentsYes4 (1 standard drink = 0.6 oz pure alcohol)CommentsUnknownSex and Gender InformationValueDate Recorded Sex Assigned at BirthNot on fileLegal JesDuvszo40/26/2022 2:39 PM ESTGender IdentityNot on fileSexual OrientationNot on filedocumented as of this encounter Plan of Treatment DateTypeDepartmentCare Team (Latest Contact Info)Jsqpjtqdjsg53/16/2026 8:00 AM EDTOffice Visit [facility] at [facility] [address] [facility] [address] [place] [address] Sheyla Pope, PROTECTIVE SIGNAL OPERATIONS SUPERVISOR-CERTIFICATION OFFICER [address] [facility] [address] [place] [address] documented as of this encounter Visit Diagnoses Not on filedocumented in this encounter Care Teams Team MemberRelationshipSpecialtyStart DateEnd Date Sanjuana Hollingsworth MD [address] [place] [address] [facility] - General12/30/20documented as of this encounter
--- OUTSIDE RECORDS SUMMARY | 2025-10-02 06:59 | XMS_ITS | Clinical Summary ---
Author Organization [facility] Address [address] [place] [place] [address] Care Team Providers Care Molder Wax Ball Name Role Phone Sanjuana Abreu MD Primary Care Provider [phone] Allergies Active AllergyReactionsCriticalityNoted DateCommentsOxycodone-Acetaminophen 09/05/2023 Other Reaction(s): itching Medications MedicationSigDispense QuantityRefillsLast FilledStart DateEnd DateStatus losartan (Cozaar) 50 MG tablet Take 50 mg by mouth in the morning.Active hydroCHLOROthiazide (HYDRODiuril) 25 MG tablet Take 25 mg by mouth in the morning.Active Levonorgestrel (LILETTA, 52 MG, IU) Liletta (52 MG)Active amLODIPine (Norvasc) 5 MG tablet Take 5 mg by mouth DailyActive estradiol (Estrace) 1 MG tablet Indications:Postmenopausal HRT (hormone replacement therapy)Take 1 tablet (1 mg) by mouth Daily 90 tablet 5Active estradiol (Estrace) 1 MG tablet Indications:Postmenopausal HRT (hormone replacement therapy)Take 1 tablet (1 mg) by mouth Daily 90 tablet Discontinued(Reorder) Active Problems No known active problems Encounters DateTypeDepartmentCare VpviFhkxhdphsuw10/15/2025 9:45 AM ESTOffice Visit [facility] [address] [place] [phone] Branden Perez DO Encounter for gynecological examination with abnormal finding; Encounter for screening mammogram for malignant neoplasm of breast; Intrauterine device surveillance; Postmenopausal HRT (hormone replacement therapy)09/30/20257775Jsghvo84/18/2025 Clinisync Result Encounter [facility] External [facility] Unsolicited Provider, Generic External Data 08/22/2025bstract [facility] [address] [place] [phone] Sanjuana Abreu MD from Last 3 Months Family History Medical HistoryRelationNameCommentsHypertensionMotherRuthy DavisSkin cancer MotherRuthy DavisThyroid diseaseMotherRuthy DavisMelanomaNeg HxRelationName StatusCommentsFatherAliveMotherRuthy DavisAlive Social History Tobacco UseTypesPacks/DayYears UsedDateSmoking Tobacco: FormerCigarettes Smokeless Tobacco: Former Tobacco Cessation:Counseling Given: Not Answered Comments:Tobacco Control 07/24/2020: Last smoked: 1-5 years ago Alcohol UseStandard [...] 09/05/2023CommentsNoSex and Gender InformationValueDate RecordedSex Assigned at OjdtcUqgsof61/15/2023 1:48 PM ESTLegal LtqJesznn60/15/2023 7:13 PM EDTGender GhsgednsFvqvsu39/15/2023 1:48 PM ESTSexual OrientationStraight 08/31/2023 1:48 PM EST Last Filed Vital Signs Vital SignReadingTime TakenCommentsBlood Txpvggkh13/7009/30/2025 9:53 AM EST Pulse--Temperature--Respiratory Rate--Oxygen Saturation--Inhaled Oxygen Concentration--Kngiih78.3 kg (166 lb)09/30/2025 9:53 AM KHCEzqlbu142.8 cm (5' 4.5 )09/30/2025 9:53 AM ESTBody Mass Index28.0509/30/2025 9:53 AM EST Plan of Treatment DateTypeDepartmentCare Team (Latest Contact Info)Tiuywfzupnb41/08/2026 3:30 PM ESTOffice Visit [facility] [address] [place] [phone] Eliana Braga, METEOROLOGICAL AIDE-BUILDING PERFORMANCE CONSULTANT [address] [place] [address] 06/17/2026 3:50 PM EDTOffice Visit [facility] [address] [place] [address] Eliana Braga, METEOROLOGICAL AIDE-BUILDING PERFORMANCE CONSULTANT [address] [place] [address] 10/06/2026 9:00 AM ESTOffice Visit [facility] [address] [place] [phone] Branden Perez DO [address] [place], [place] [phone] Health MaintenanceDue DateLast DoneCommentsCT Hmqqpxuzmzew1973Colonoscopy 1975FIT1973FOBT1973 6112Oxdjetujrhjku1973Pap Smear01/27/2024 01/26/2021, 06/26/2020COVID-19 Vaccine ( season)/12/2020, 01/27/2021, 01/05/2021Influenza Vaccine (#1)511/, 06/29/2020, 06/17/2020, Additional history utfkiiPwgrggdaj31, 12/01/2022, 11/17/2022, Additional history existsColorectal Cancer Qkfjfskez23/05/2027 FIT-DNAervical Cancer Ppyltldmk93/04/2029HPV/Cotest /01/2024, 08/24/2022, 08/07/2021neumococcal Vaccine: Pediatrics (0 to 5 Years) and At-Risk Patients (6 to 64 Years)Aged OutNo longer eligible based on patient's age to complete this topic Procedures Procedure NamePriorityDate/TimeAssociated DiagnosisCommentsALL THYROID STIM SZBCJYPIxytpwj36/18/2025 8:55 AM EST ALL LIPID PROFILE (FASTING)Zfdzsui9009/03/2025 8:55 AM EST ALL BASIC METABOLIC SREIMKjjuldz11/18/2025 8:55 AM EST MM TOMOSYNTHESIS SCREENING BI09/26/2024 9:14 AM EST IGP, APT HPV,RFX 16/18,29Gnusnjm03/04/2024 12:00 AM EST Screening for malignant neoplasm of cervix Screening for HPV (human papillomavirus) Intrauterine device surveillance LAB COLOGUARD?? COLON CANCER MBXTDLYfapbjt69/05/2024 7:00 AM EST Screening for malignant neoplasm of colon THINPREP TIS PAP AND HPV MRNA E6/E7 REFLEX HPV 16,18/45 (25315)Umjfdqk2201/26/2021 from Last 3 Months or Most Recently Relevant to Health Maintenance Results * ALL THYROID STIM HORMONE (09/03/2025 8:55 AM EST)ComponentValueRef RangeTest MethodAnalysis TimePerformed AtPathologist SignatureTHYROID STIMULATING HORMONE1.0510.358 - 3.740 uIU/mLTBHSpecimen (Source)Anatomical Location / LateralityCollection Method / VolumeCollection TimeReceived Time09/03/2025 8:55 AM EST09/03/2025 8:56 AM EST Narrative [facility] - 09/03/2025 9:33 AM EST Authorizing ProviderResult TypeResult StatusGeneric External Data Provider CLINISYNCFinal ResultPerforming OrganizationAddressCity/State/ZIP CodePhone Number SARAH [facility] * (ABNORMAL) ALL LIPID PROFILE (FASTING) (09/03/2025 8:55 AM EST)ComponentValue Ref RangeTest MethodAnalysis TimePerformed AtPathologist Signature PPVCNFGYUJBSK07<=150 mg/nZFEZZVQHMFYWQGY716(H)<=200 mg/dLTBHHDL PFDAXQJUZXO62 (H)40 - 60 mg/dLTBHComment: > or =60 mg/dl - LOW CARDIOVASCULAR RISK <40 mg/dl - HIGH CARDIOVASCULAR RISK LDL CHOLESTEROL PTRQPWMMCZ710.0mg/dLTBHComment: <100 mg/dl OPTIMAL 100-129 mg/dl NEAR OR ABOVE OPTIMAL 130-159 mg/dl BORDERLINE HIGH 160-189 mg/dl HIGH >190 mg/dl VERY HIGH VLDL MGCGJYRAMOS43.2mg/dLTBHCHOL HDL RATIO3.7TBHComment: 3.3 - 4.4 ?? LOW RISK 4.4 - 7.1 ?? AVERAGE RISK 7.1 - 11.0 ??MODERATE RISK >11.0 HIGH RISK Specimen (Source)Anatomical Location / LateralityCollection Method / Volume Collection TimeReceived Time09/03/2025 8:55 AM EST09/03/2025 8:56 AM EST Narrative [facility] - 09/03/2025 9:33 AM EST Authorizing ProviderResult TypeResult StatusGeneric External Data Provider [facility]NC[facility] Centeral ResultPerforming OrganizationAddressty/State/ZIP CodePhone Number SARAH TB * (ABNORMAL) ALL BASIC METABOLIC PANEL (09/03/2025 8:55 AM EST)ComponentValueRef RangeTest MethodAnalysis TimePerformed AtPathologist BqxkndyjqKRFZID556919 - 145 mmol/LTBHPOTASSIUM3.63.5 - 5.1 mmol/UOHVPVSXOUTP81096 - 107 mmol/LTBH CARBON QELNCRF12.521.0 - 32.0 mmol/LTBHANION GAP12.6WLVWJWLQML77887 - 106 mg/dLTBHBLOOD UREA QLAFQHHH61.0(H)7.0 - 18.0 mg/dLTBHCREATININE0.950.55 - 1.02 mg/dLTBHTBH EGFR-AF ETHIOPIAN>60>=60 mL/min/1.73m 2TBHTBH EGFR-NON AF ETHIOPIAN >60>=60 mL/min/1.73m 2TBHBUN CREATININE RATIO20.8LTKCVDPZLK9.08.5 - 10.1 mg/dL TBHSpecimen (Source)Anatomical Location / LateralityCollection Method / Volume Collection TimeReceived Time09/03/2025 8:55 AM EST09/03/2025 8:56 AM EST Narrative [facility] - 09/03/2025 9:33 AM EST Authorizing ProviderResult TypeResult StatusGeneric External Data Provider CLINISYNCFinal ResultPerforming OrganizationAddressCity/State/ZIP CodePhone Number [facility]NC [facility] * MM TOMOSYNTHESIS SCREENING BI (09/26/2024 9:14 AM EST)Anatomical Region LateralityModalityOtherSpecimen (Source)Anatomical Location / Laterality Collection Method / VolumeCollection TimeReceived Time09/26/2024 9:14 AM EST Narrative 09/26/2024 9:15 AM EST [facility] ?[address] ? [place] [address] ? Mammography Report ? Signed ? Patient: COOK,NICOLETTE S ? MR#: [id number] ?? : 1975 ?Acct:[id number] ?? Age/Sex: 49 / F ?ADM Date: 09/26/24 ?? Loc: MAMMO ? Attending Dr: BRANDEN PEREZ ? Ordering Physician: BRANDEN PEREZ ? Results: ? Date of Service: 09/26/24 ?Follow Up: ? Procedure(s): MM tomosynthesis screening BI ?? Accession Number(s): [id number] ? cc: LOIS,SANJUANA ; BRANDEN PEREZ ? Patient Name: ? NICOLETTE BRADY ? MR#: [id number] ? : 1975 ? Exam Date: 09/26/2024 ?? Ordering Doctor: DR BRANDEN PEREZ ? RADIOLOGY REPORT ? PROCEDURE: ? MM TOMOSYNTHESIS SCREENING BI ? COMPARISON: ? MG MAMM SCREEN 3D JIM CAD, 11/27/2021. ??MG MAMM SCREEN 3D JIM ?? CAD, 12/01/2022. ? INDICATIONS: ? Screening ? Calculator Name ? NCI Breast Cancer Risk Assessment Tool ?? 5 Year Breast Cancer Risk ? 0.80% ?? Lifetime Breast Cancer Risk ? 7.20% ?? Personal Breast Cancer ?No ?? Personal Ovarian Cancer ? No ?? Treatments ? None ?? Family Cancers ? None ? LOCATION: ? [facility] ? BREAST COMPOSITION: ? The breasts are extremely dense, which lowers the ?? sensitivity of mammography. ? FINDINGS: ? DIAGNOSTIC CATEGORY 1--NEGATIVE. NO CHANGE FROM COMPARISON ASSESSMENT. ? Scattered benign-appearing nodules are present. ??Scattered benign-appearing ?? calcifications are present. ??Scattered benign-appearing lymph nodes are ?? present. ? RIGHT BREAST: ??No significant suspicious finding. ? LEFT BREAST: ??No significant suspicious finding. ? RECOMMENDATIONS: ? ROUTINE MAMMOGRAM AND CLINICAL EVALUATION IN 12 MONTHS. ? PLEASE NOTE: ??A NORMAL MAMMOGRAM DOES NOT EXCLUDE THE POSSIBILITY OF BREAST ?? CANCER. ??A CLINICALLY SUSPICIOUS PALPABLE LUMP SHOULD BE BIOPSIED. ? Dictated by: John Baker MD on 09/26/2024 at 09:12 ? Approved by: John Baker MD on 09/26/2024 at 09:14 ? Dictated By: ?John Baker M.D. ? Signed By: ?09/26/24 0915 ? DD/ ? TD/TT: ? Glassine Machine Tender: Procedure Note Radiology, Radiologist, - 09/26/2024 [facility] [place] [id number] Mammography Report Signed Patient: NICOLETTE BRADY SMR#: [id number] : 1975Acct:[id number] Age/Sex: 49 / FADM Date: 09/26/24 Loc: MAMMO Attending Dr: BRANDEN PEREZ Ordering Physician: BRANDEN PEREZResults: Date of Service: 09/26/24Follow Up: Procedure(s): MM tomosynthesis screening BI Accession Number(s): [id number] cc: SANJUANA ABREU ; BRANDEN PEREZ Patient Name: NICOLETTE BRADY MR#: [id number] : 1975 Exam Date: 09/26/2024 Ordering Doctor: DR BRANDEN PEREZ RADIOLOGY REPORT PROCEDURE: MM TOMOSYNTHESIS SCREENING BI COMPARISON: MG MAMM SCREEN 3D JIM CAD, 11/27/2021. MG MAMM SCREEN 3DBIL CAD, 12/01/2022. INDICATIONS: Screening Calculator Name NCI Breast Cancer Risk Assessment Tool 5 Year Breast Cancer Risk 0.80% Lifetime Breast Cancer Risk 7.20% Personal Breast Cancer No Personal Ovarian Cancer No Treatments None Family Cancers None LOCATION: [facility] BREAST COMPOSITION: The breasts are extremely dense, which lowers the sensitivity of mammography. FINDINGS: DIAGNOSTIC CATEGORY 1--NEGATIVE. NO CHANGE FROM COMPARISON ASSESSMENT. Scattered benign-appearing nodules are present. Scatteredbenign-appearing calcifications are present. Scattered benign-appearing lymph nodes are present. RIGHT BREAST: No significant suspicious finding. LEFT BREAST: No significant suspicious finding. RECOMMENDATIONS: ROUTINE MAMMOGRAM AND CLINICAL EVALUATION IN 12 MONTHS. PLEASE NOTE: A NORMAL MAMMOGRAM DOES NOT EXCLUDE THE POSSIBILITY OFBREAST CANCER. A CLINICALLY SUSPICIOUS PALPABLE LUMP SHOULD BE BIOPSIED. Dictated by: John Baker MD on 09/26/2024 at 09:12 Approved by: John Baker MD on 09/26/2024 at 09:14 Dictated By: John Baker M.D. Signed By:09/26/24914 DD/ 3 TD/TT: Glassine Machine Tender: Authorizing ProviderResult TypeResult StatusRichard Dolly Perez DOCLINISYNC IMAGING Final Result * IGP, APT HPV,RFX 16/18,45 (09/19/2024 12:00 AM EST)ComponentValueRef RangeTest MethodAnalysis TimePerformed AtPathologist SignatureDiagnosis:CommentLABCORP Comment:NEGATIVE FOR INTRAEPITHELIAL LESION OR MALIGNANCY.Specimen Adequacy: CommentLABCORPComment: Satisfactory for evaluation. ??Endocervical and/or squamous metaplastic cells (endocervical component) are present. Clinician Provided ICD10:CommentLABCORPComment: Z12.4 Z11.51 Z30.431 Performed By:CommentLABCORPComment:Erik Huang, Damper Maker (ASCP)Cyto Comments.LABCORPNote:CommentLABCORPComment: The Pap smear is a screening test designed to aid in the detection of premalignant and malignant conditions of the uterine cervix. ??It is not a diagnostic procedure and should not be used as the sole means of detecting cervical cancer. ??Both false-positive and false-negative reports do occur. Test Methodology:CANCELEDLABCORPComment: The [employer].Media(R) Coil Winder was unable to read this specimen. ??Therefore a manual review was performed. Result canceled by the ancillary. HPV AptimaNegativeNegativeLABCORPComment: This nucleic acid amplification test detects fourteen high-risk HPV types (16,18,31,33,35,39,45,51,52,56,58,59,66,68) without differentiation. Specimen (Source)Anatomical Location / LateralityCollection Method / Volume Collection TimeReceived Time/02/2024 Narrative [facility] - 09/26/2024 6:07 AM EST Performed at: 01 - [facility] ??[id number] Verse Writer: Kim Olivera MD, Phone: ??[phone] Performed at: ??02 - [facility] ??[id number] Verse Writer: Kim Olivera MD, Phone: ??[phone] Specimen Comment: No. of containers..01 ThinPrep Vial Authorizing ProviderResult TypeResult StatusRichard A [facility] DOL BLOOD ORDERABLESEdited Result - FinalPerforming OrganizationAddressCity/State/ZIP Code Phone Number [facility] * Cologuard?? colon cancer screening (10/21/2023 7:00 AM EST)ComponentValueRef RangeTest MethodAnalysis TimePerformed AtPathologist SignatureNONINV COLON CA DNA+OCC BLD SCRN STL-WFHAfehrbuvJsvsdshm08/22/2024 9:09 AM [employer] (CLIA #:[id number])Comment: NEGATIVE TEST RESULT. A negative Cologuard result indicates a low likelihood that a colorectal cancer (CRC) or advanced adenoma (adenomatous polyps with more advanced pre-malignant features) ??is present. The chance that a person with a negative Cologuard test has a colorectal cancer is less than 1in 1500 (negative predictive value >99.9%) or has an advanced adenoma is less than 5.3% (negative predictive value 94.7%). These data are based on a prospective cross-sectional study of 10,000individuals at average risk for colorectal cancer who were screened with both Cologuard and colonoscopy. ([place] Bullock al, N Engl J Med 2014;370(14):1426-5845) The normal value (reference range) for this assay is negative. COLOGUARD RE-SCREENING RECOMMENDATION: Periodic colorectal cancer screening is an important part ofpreventive healthcare for asymptomatic individuals at average risk for colorectal cancer. ??Following a negative Cologuard result, the [place] [employer] Society and U.S. Multi-Society Task Force screening guidelines recommend a Cologuard re-screening interval of 3 years. References: [place] [employer] Guideline for Colorectal Cancer Screening: https://www.cancer.or g/cancer/gsixu-ceempq-zsgget/vkwdurtta-szjvyljhq-modkmrh/acs-recommendations.htm carlos; Joe SAUCEDO, Ivet PARRA, Alan AntonK, Colorectal Cancer Screening: Recommendations for Physicians and Patients from the U.S. Multi-Society Task Force on Colorectal Cancer Screening , Am J Gastroenterology 2017; 112:4583-7953. TEST DESCRIPTION: Composite algorithmic analysis of stool DNA-biomarkers with hemoglobin immunoassay. ?? Quantitative values of individual biomarkers are not reportable and are not associated with individual biomarker result reference ranges. Cologuard is intended for colorectal cancer screening ofadults of either sex, 45 years or older, who are at average-risk for colorectal cancer (CRC). Cologuard has been approved for use by the U.S. FDA. The performance of Cologuard was established in a cross sectional study of average-risk adults aged 50-84. Cologuard performance in patients ages 45 to 49 years was estimated by sub-group analysis of near-age groups. Colonoscopies performed for a positive result may find as the most clinically significant lesion: colorectal cancer [4.0%], advanced adenoma (including sessile serrated polyps greater than or equal to 1cm diameter) [20%] or non- advanced adenoma [31%]; or no colorectal neoplasia [45%]. These estimates are derived from a prospective cross-sectional screening study of 10,000 individuals at average risk for colorectal cancer who were screened with both Cologuard and colonoscopy. ([place] Bullock al, N Engl J Med 2014;370(14):9876-8604.) Cologuard may produce a false negative or false positive result (no colorectal cancer or precancerous polyp present at colonoscopy follow up). A negative Cologuard test result does not guarantee the absence of CRC or advanced adenoma (pre-cancer). The current Cologuard screening interval is every 3 years. ([place] [employer] Society and U.S. Multi-Society Task Force). Cologuard performance data in a 10,000 patient pivotal study using colonoscopy as the reference method can be accessed at the following location: www.[employer]x/results. Additional description of the Cologuard test process, warnings and precautions can be found at www.[employer].com. Specimen (Source)Anatomical Location / LateralityCollection Method / Volume Collection TimeReceived TimeStool specimen (specimen)10/21/2023 7:00 AM EST 10/22/2023 6:44 PM EST Narrative Authorizing ProviderResult TypeResult StatusSanjuana GARCIA MOLECULAR DIAGNOSTICS ORDERABLESFinal ResultPerforming OrganizationAddressCity/State/ZIP CodePhone Number [employer] (CLIA #:[id number]) [place] [address], * THINPREP TIS PAP AND HPV MRNA E6/E7 REFLEX HPV 16,18/45 (17449) (01/26/2021) ComponentValueRef RangeTest MethodAnalysis TimePerformed AtPathologist SignatureCLINICAL INFORMATION:06/26/2020 NEG HPV POSITIVE 18/45N[facility] LEGAC[facility] EXTERNAL LABLMP:NONE GIVENNOMS LEGACY EXTERNAL LABPREV. PAP:07/24/20 COLPO CIN1 [facility] EXTER[facility] LABPREV. BX:NONE GIVENNOMS LEGACY EXTERNAL LABSOURCE: CervixNOMS LEGACY EXTERNAL LABSTATEMENT OF ADEQUACY:SEE COMMENTNOMS LEGACY EXTERNAL LABComment: Satisfactory for evaluation. Endocervical/transformation zone component present. INTERPRETATION/RESULT:Negative for intraepithelial lesion or malignancy.[facility] EXTER[facility] LABCOMMENT:This Pap test has been evaluated with computer assisted technology.[facility] LABCYTOTECHNOLOGIST:SEE COMMENTNOMS LEGACY EXTERNAL LABComment: KMB, CT(ASCP) CT screening location: [email or web address] [address]. REVIEW PLANT SCIENCE PROFESSOR:SEE COMMENTSee Note:[facility] LEGAC[facility] EXTERNAL LABComment: Reference Range: ZL, CT(ASCP) CT screening location: [email or web address] [address]. COMMENTSEE COMMENTNOMS LEGACY EXTERNAL LABComment: EXPLANATORY NOTE: The Pap is a screening test for cervical cancer. It is not a diagnostic test and is subject to false negative and false positive results. It is most reliable when a satisfactory sample, regularly obtained, is submitted with relevant clinical findings and history, and when the Pap result is evaluated along with historic and current clinical information. HPV MRNA E6/E7Not DetectedNot DetectedNOMS LEGACY EXTERNAL LABComment: Methodology: Skip Tracer-Mediated Amplification This assay detects E6/E7 viral messenger RNA (mRNA) from 14 high-risk HPV types (16,18,31,33,35,39,45,51,52,56,58,59,66,68). The analytical performance characteristics of this assay have been determined by [employer]. The modifications have not been cleared or approved by the FDA. This assay has been validated pursuant to the CLIA regulations and is used for clinical purposes. For additional information, please refer to http://education.[employer]worx/faq/TIA248t5 (This link if provided for information/ educational purposes only.) Specimen (Source)Anatomical Location / LateralityCollection Method / Volume Collection TimeReceived Time01/26/2021 Narrative Authorizing ProviderResult TypeResult StatusRichard A Visci DOECW LABSFinal ResultPerforming OrganizationAddressCity/State/ZIP CodePhone Number [facility] from Last 3 Months or Most Recently Relevant to Health Maintenance Insurance Care Teams Team MemberRelationshipSpecialtyStart DateEnd Date Sanjuana Abreu MD [address] [facility] [address] [place] [address] PCP - GeneralFamily Medicine02/22/23
--- OUTSIDE RECORDS SUMMARY | 2025-10-02 06:59 | XMS_ITS | Clinical Summary ---
Author Organization [facility] Address [address] [place] [address] Phone Care Team Providers Care Lace Machine Operator Name Role Phone Sanjuana Hollingsworth MD Primary Care Provider [phone] Allergies Active AllergyReactionsCriticalityNoted DateCommentsOxycodone-Acetaminophen Ftpijmp8611/15/2023 Medications MedicationSigDispense QuantityRefillsLast FilledStart DateEnd DateStatus estradiol (Estrace) 1 mg tablet Take 1 tablet (1 mg) by mouth once daily.Active amLODIPine (Norvasc) 5 mg tablet Indications:Benign essential hypertension,BMI 27.0-27.9,adultTake 1 tablet (5 mg) by mouth once daily. 30 tablet 6Active chlorthalidone (Hygroton) 25 mg tablet Indications:Benign essential hypertensionTake 1 tablet (25 mg) by mouth once daily. 90 tablet 5Active losartan (Cozaar) 50 mg tablet Indications:Essential (primary) hypertensionTake 1 tablet (50 mg) by mouth once daily. 90 tablet 5Active Active Problems ProblemNoted DateDiagnosed DateBMI 27.0-27.9,adult01/11/2024 Assessment & Plan (08/20/2025 4:23 PM EST): Reviewed the merits of healthy lifestyle choices on overall cardiovascular health. Former jpdnlb3501/11/2024bnormal EKG011/15/2023enign essential hypertension 11/15/2023hest pain11/15/20231373Zxfckmvugktaps77/30/2024 Encounters DateTypeDepartmentCare HfpcRmflwtawylk40/16/2025 4:00 PM ESTOffice Visit at [facility] [address] [place] [phone] Sheyla Pope APRN-CNP Mixed hyperlipidemia (Primary Dx); Benign essential hypertension; BMI 27.0-27.9,adult Discharge Disposition: Home09/30/20259989Jyyvgo23/08/2025 4:15 PM ESTAncillary Procedure [facility] [address] [facility] [address] [place] [address] Benign essential tgzfgldrxukg90/08/0617Uribbh37/01/4375Nbvprf42/24/2025Results Follow-Up at [facility] [address] [facility] [address] [place] [address] Magui Markham LPN Transthoracic Echo Limited, CT cardiac scoring wo IV /18/2025 7:35 AM EST - 09/03/2025 11:59 PM ESTHospital Encounter at [facility] [address] [address] Benign essential hypertension Discharge Disposition: Home09/03/20253637Iynjou00/11/9394Qivcni39/04/2025 4:00 PM ESTOffice Visit at [facility] [address] [address] Sheyla Pope APRN-CNP Benign essential hypertension (Primary Dx); BMI 27.0-27.9,adult; Essential (primary) hypertension Discharge Disposition: Home08/19/2025Travelfrom Last 3 Months Immunizations ImmunizationAdministration DatesNext DueFlu vaccine (IIV4), preservative free *Check age/dose*1Pfizer Purple Cap HDCD-GjH-206/03/2021 Family History Medical HistoryRelationNameCommentsHeart attackBrother 1high serum cholesterol Brother 1Heart failureBrother 2BryanHypertensionMother 1Abnormal EKGMother 2 RuthyRelationNameStatusCommentsBrother 1Brother 2BryanDeceasedMother 1Mother 2 Shonda Social History Tobacco UseTypesPacks/DayYears UsedDateSmoking Tobacco: FormerCigarettesQuit: 01/15/2017Smokeless Tobacco: NeverAlcohol UseStandard Drinks/WeekCommentsYes4 (1 standard drink = 0.6 oz pure alcohol)CommentsUnknownSex and Gender InformationValueDate RecordedSex Assigned at BirthNot on fileLegal SexFemale 09/11/2022 2:39 PM ESTGender IdentityNot on fileSexual OrientationNot on file Last Filed Vital Signs Vital SignReadingTime TakenCommentsBlood Wxxxlhij041/7210/01/2025 3:59 PM EST Itoyc206610/01/2025 3:59 PM ESTTemperature--Respiratory Rate--Oxygen Saturation-- Inhaled Oxygen Concentration--Pkjbhn34.8 kg (165 lb)10/01/2025 3:59 PM ESTHeight 165.1 cm (5' 5 )10/01/2025 3:59 PM ESTBody Mass Index27.4610/01/2025 3:59 PM EST Plan of Treatment DateTypeDepartmentCare Team (Latest Contact Info)Ckepffppxzp79/16/2026 8:00 AM EDTOffice Visit at [facility] [address] [phone] Sheyla Pope, BASIC SCIENCES DEAN-CLOCK MAKER [address] [facility], [facility] [address] [place] [address] Health MaintenanceDue DateLast DoneCommentsCT Tfdmwfkhjnhm1973Colonoscopy 1973FIT1973HIV Rvypriret1973Lipid Panel1973Sigmoidoscopy 1973MMR Vaccines (1 of 1 - Standard series)1974Diabetes Screening 1991Hepatitis C Ukgdwvqfc17/07/1991Hepatitis B Vaccines (1 of 3 - 19+ 3- dose series)1992Cervical Cancer Rafbrapdc48/07/1994HPV/Nwbssx0005/23/1994Pap Smear1994DTaP/Tdap/Td Vaccines (1 - Tdap)1995Pneumococcal Vaccine (1 of 1 - PCV)2023Zoster Vaccines (1 of 2)05/23/20233010Ksvpyyfzd89/15/2024 12/01/2022, 11/17/2022, 11/27/2021, Additional history existsInfluenza Vaccine (#1)/, 06/29/2020, 06/17/2020, Additional history exists COVID-19 Vaccine (2 - season)/12/2020Yearly Adult Physical , 09/19/2024, 09/19/2024, Additional history exists Colorectal Cancer Pcqnizlzo61/05/2027FIT-DNA (Cologuard)HIB VaccinesAged OutNo longer eligible based on patient's age to complete this topic HPV VaccinesAged OutNo longer eligible based on patient's age to complete this topicHepatitis A VaccinesAged OutNo longer eligible based on patient's age to complete this topicIPV VaccinesAged OutNo longer eligible based on patient's age to complete this topicMeningococcal VaccineAged OutNo longer eligible based on patient's age to complete this topicRotavirus VaccinesAged OutNo longer eligible based on patient's age to complete this topic Procedures Procedure NamePriorityDate/TimeAssociated DiagnosisCommentsCT CARDIAC SCORING WO IV PNXJVKXOLbmmoty65/08/2025 4:18 PM EST Benign essential hypertension TRANSTHORACIC ECHO (TTE) ZVENNFEWygfntx45/18/2025 8:13 AM EST Benign essential hypertension from Last 3 Months Results * CT cardiac scoring wo IV [...] coronary heart disease events. ??According to the [place] [employer] Clinical Expert Consensus [...] other non-lipid coronary risk factors. ?? Reference: Fairfield P et al. Circulation. ??2007; 115:402-426 ?? MACRO: None. ?? Signed by: Tj Leslie 09/24/2025 9:13 AM Dictation workstation: ?? [id number] Narrative 09/24/2025 9:13 AM EST Interpreted By: Tj Leslie, STUDY: CT CARDIAC SCORING WO IV CONTRAST; ??09/23/2025 4:18 pm ?? INDICATION: Signs/Symptoms:shortness of brain. ?? COMPARISON: None. ?? ACCESSION NUMBER(S): [id number] ?? ORDERING CLINICIAN: SHEYLA POPE ?? TECHNIQUE: [...] Signs/Symptoms:shortness of brain. COMPARISON: None. ACCESSION NUMBER(S): [id number] ORDERING CLINICIAN: SHEYLA POPE TECHNIQUE: Using prospective [...] coronary heart disease events. According to the [place] [employer] Clinical Expert Consensus [...] modify other non-lipid coronary risk factors. Reference: Fairfield P et al. Circulation. 2007; 115:402-426 MACRO: None. Signed by: Tj Leslie 09/24/2025 9:13 AM Dictation workstation: [id number] Authorizing ProviderResult TypeResult StatusSheyla Pope BASIC SCIENCES DEAN-CNPG CT PROCEDURESFinal Result * TRANSTHORACIC ECHO (TTE) LIMITED (09/03/2025 8:13 AM EST)ComponentValueRef RangeTest MethodAnalysis TimePerformed AtPathologist SignatureAV mn nhei3gpDx SYNGOAV pk vel1.52m/sSYNGOLV Biplane EF66%SYNGOLVOT diam1.93cmSYNGOMV E/A ratio1.36SYNGOTricuspid annular plane systolic excursion2.1cmSYNGOMV avg E/e' ratio11.49SYNGOLA vol index A/L29.4ml/s5ZERHJVI free wall pk S'12.89cm/sSYNGO XXMQ96bdZsMMWNDLCQIs2.42cmSYNGOAortic Valve Area by Continuity of Peak Velocity1.39ly6EVULNIN pk xhfw2zjWdCDJYMHgiios Valve Area by Continuity of VTI 1.68kj0OCHSETB EF65%SYNGOLV A4C EF59.1SYNGOSpecimen (Source)Anatomical Location / LateralityCollection Method / VolumeCollection TimeReceived Time 09/03/2025 7:38 AM EST Impressions [facility] - 09/03/2025 5:53 PM EST CONCLUSIONS: 1. Left ventricular ejection fraction is normal by visual estimate at 65%. 2. Normal echocardiogram. 3. There is normal right ventricular global systolic function. Narrative [facility] - 09/03/2025 5:53 PM EST ?[address], [address] [place] [address] ? TRANSTHORACIC ECHOCARDIOGRAM REPORT Patient Name: ? NICOLETTE GALARZA ? Reading Physician: ?[id number] Hoang ?[facility] Study Date: ? 09/03/2025 ?Ordering Provider: ?[id number] SHEYLA K ?POPE MRN/PID: ?[id number] ?Fellow: Accession#: ? [id number] ?Nurse: Date of /Age: ??1975 / 50 years Mechanic/Welder: ?Christina William ?RDCS, RVT Gender Assigned at ??F ? Additional Staff: : Height: ? 167.64 cm ? Admit Date: Weight: ? 75.75 kg ?Admission Status: ? Outpatient BSA / BMI: ?1.85 m2 / 26.95 ? Department Location: ??[facility] ?kg/m2 ? [place] Blood Pressure: 122 /78 mmHg Study Type: ?TRANSTHORACIC ECHO (TTE) LIMITED Diagnosis/ICD: Essential (primary) hypertension-I10 Indication: ?Abnormal EKG, Chest Pain, Hyperlipidemia, Former Smoker CPT Codes: ? Echo Limited-75740 Study Detail: The following Echo studies were performed: 2D, M-Mode, Doppler and ?color flow. PHYSICIAN INTERPRETATION: Left Ventricle: Left ventricular ejection fraction is normal by visual estimate at 65%. There are no regional wall motion abnormalities. The left ventricular cavity size is normal. There is normal septal and normal posterior left ventricular wall thickness. Spectral Doppler shows a normal pattern of left ventricular diastolic filling. Left Atrium: The left atrial size is normal. Right Ventricle: The right ventricle is normal in size. There is normal right ventricular global systolic function. Right Atrium: The right atrial size is normal. Aortic Valve: The aortic valve is trileaflet. The aortic valve area by VTI is 1.62 cm? with a peak velocity of 1.52 m/s. The peak and mean gradients are 9 mmHg and 5 mmHg, respectively, with a dimensionless index of 0.55. There is no evidence of aortic valve regurgitation. Mitral Valve: The mitral valve is normal in structure. There is no evidence of mitral valve regurgitation. The E Vmax is 1.10 m/s. Tricuspid Valve: The tricuspid valve is structurally normal. There is trace tricuspid regurgitation. Pulmonic Valve: The pulmonic valve is structurally normal. There is no indication of pulmonic valveregurgitation. Pericardium: No pericardial effusion noted. Aorta: The aortic root is normal. Additional Comments: Normal echocardiogram. CONCLUSIONS: 1. Left ventricular ejection fraction is normal by visual estimate at 65%. 2. Normal echocardiogram. 3. There is normal right ventricular global systolic function. QUANTITATIVE DATA SUMMARY: 2D MEASUREMENTS: ? Normal Ranges: Ao Root d: ? 3.10 cm ? (2.0-3.7cm) LAs: ? 3.29 cm ? (2.7-4.0cm) RVIDd: ? 2.37 cm ? (0.9-3.6cm) IVSd: ?0.82 cm ? (0.6-1.1cm) LVPWd: ? 0.79 cm ? (0.6-1.1cm) LVIDd: ? 4.42 cm ? (3.9-5.9cm) LVIDs: ? 2.88 cm LV Mass Index: ?? 59.7 g/m2 LVEDV Index: ? 44.79 ml/m2 LV % FS ?34.9 % LEFT ATRIUM: ? Normal Ranges: LA Vol A4C: ? 52.4 ml ?(22+/-6mL/m2) LA Vol A2C: ? 51.4 ml LA Vol BP: ?54.5 ml LA Vol Index A4C: 28.3ml/m2 LA Vol Index A2C: 27.7 ml/m2 LA Vol Index BP: ??29.4 ml/m2 LA Vol A4C: ? 48.6 ml LA Vol A2C: ? 48.5 ml LA Vol Index BSA: 26.2 ml/m2 AORTA MEASUREMENTS: ? Normal Ranges: Asc Ao, d: ?2.80 cm (2.1-3.4cm) LV SYSTOLIC FUNCTION: ? Normal Ranges: EF-A4C View: 59 % (>=55%) EF-A2C View: ?70 % EF-Biplane: ? 66 % EF-Visual: ?65 % LV EF Reported: 65 % LV DIASTOLIC FUNCTION: ? Normal Ranges: MV Peak E: ? 1.10 m/s ??(0.7-1.2 m/s) MV Peak A: ? 0.81 m/s ??(0.42-0.7 m/s) E/A Ratio: ? 1.36 ?(1.0-2.2) MV e' 0.103 m/s (>8.0) MV lateral e' ?0.10 m/s MV medial e' ? 0.10 m/s E/e' Ratio: 10.72 (<8.0) MITRAL VALVE: ?Normal Ranges: MV DT: ?153 msec (150-240msec) MITRAL INSUFFICIENCY: ? Normal Ranges: MR Vmax: ?200.46 cm/s AORTIC VALVE: ? Normal Ranges: AoV Vmax: 1.52 m/s (<=1.7m/s) AoV Peak P.2 mmHg (<20mmHg) AoV Mean PG: ? 5.4 mmHg (1.7-11.5mmHg) LVOT Max Camilo: 1.01 m/s (<=1.1m/s) AoV VTI: ? 37.28 cm (18-25cm) LVOT VTI: ?20.63 cm LVOT Diameter: ? 1.93 cm ??(1.8-2.4cm) AoV Area, VTI: ? 1.62 cm2 (2.5-5.5cm2) AoV Area,Vmax: ? 1.94 cm2 (2.5-4.5cm2) AoV Dimensionless Index: 0.55 RIGHT VENTRICLE: RV Basal 3.41 cm RV Mid ?? 2.30 cm RV Major 7.4 cm TAPSE: ?? 21.1 mm RV s' ?0.13 m/s TRICUSPID VALVE/RVSP: ?Normal Ranges: Peak TR Velocity: ? 2.20 m/s PULMONIC VALVE: ?Normal Ranges: RVOT Vmax: ?0.77 m/s (0.6-0.9m/s) AORTA: Asc Ao Diam 2.78 cm [id number] Hoang Warren MD, [facility] Electronically signed on 09/03/2025 at 5:53:53 PM Final Procedure Note Hoang Warren MD - 09/03/[address], [address], [place] [address] TRANSTHORACIC ECHOCARDIOGRAM REPORT Patient Name: NICOLETTE GALARZA Jessica Physician: [id number] Warren MD,[facility] Study Date: 09/03/2025 Ordering Provider: [id number] ELIJAH POPE MRN/PID: [id number] Fellow: Nurse: Date of /Age: 8 1975 / 50 years Mechanic/Welder: Adam ZHOU RVT Gender Assigned at F Additional Staff: : Height: 167.64 cm Admit Date: Weight: 75.75 kg Admission Status: Outpatient BSA / BMI: 1.85 m2 / 26.95 [facility] [place] Blood Pressure: 122 /78 mmHg Study Type: TRANSTHORACIC ECHO (TTE) LIMITED Diagnosis/ICD: Essential (primary) hypertension-I10 Indication: Abnormal EKG, Chest Pain, Hyperlipidemia, Former Smoker CPT Codes: Echo Limited-06376 Study Detail: The following Echo studies were performed: 2D, M-Mode,Doppler and color flow. PHYSICIAN INTERPRETATION: Left Ventricle: Left ventricular ejection fraction is normal by visualestimate at 65%. There are no regional wall motion abnormalities. The leftventricular cavity size is normal. There is normal septal and normalposterior left ventricular wall thickness. Spectral Doppler shows a normalpattern of left ventricular diastolic filling. Left Atrium: The left atrial size is normal. Right Ventricle: The right ventricle is normal in size. There is normalright ventricular global systolic function. Right Atrium: The right atrial size is normal. Aortic Valve: The aortic valve is trileaflet. The aortic valve area by VTIis 1.62 cm? with a peak velocity of 1.52 m/s. The peak and mean gradientsare 9 mmHg and 5 mmHg, respectively, with a dimensionless index of 0.55.There is no evidence of aortic valve regurgitation. Mitral Valve: The mitral valve is normal in structure. There is noevidence of mitral valve regurgitation. The E Vmax is 1.10 m/s. Tricuspid Valve: The tricuspid valve is structurally normal. There istrace tricuspid regurgitation. Pulmonic Valve: The pulmonic valve is structurally normal. There is noindication of pulmonic valve regurgitation. Pericardium: No pericardial effusion noted. Aorta: The aortic root is normal. Additional Comments: Normal echocardiogram. CONCLUSIONS: 1. Left ventricular ejection fraction is normal by visual estimate at65%. 2. Normal echocardiogram. 3. There is normal right ventricular global systolic function. QUANTITATIVE DATA SUMMARY: 2D MEASUREMENTS: Normal Ranges: Ao Root d: 3.10 cm (2.0-3.7cm) LAs: 3.29 cm (2.7-4.0cm) RVIDd: 2.37 cm (0.9-3.6cm) IVSd: 0.82 cm (0.6-1.1cm) LVPWd: 0.79 cm (0.6-1.1cm) LVIDd: 4.42 cm (3.9-5.9cm) LVIDs: 2.88 cm LV Mass Index: 59.7 g/m2 LVEDV Index: 44.79 ml/m2 LV % FS 34.9 % LEFT ATRIUM: Normal Ranges: LA Vol A4C: 52.4 ml (22+/-6mL/m2) LA Vol A2C: 51.4 ml LA Vol BP: 54.5 ml LA Vol Index A4C: 28.3ml/m2 LA Vol Index A2C: 27.7 ml/m2 LA Vol Index BP: 29.4 ml/m2 LA Vol A4C: 48.6 ml LA Vol A2C: 48.5 ml LA Vol Index BSA: 26.2 ml/m2 AORTA MEASUREMENTS: Normal Ranges: Asc Ao, d: 2.80 cm (2.1-3.4cm) LV SYSTOLIC FUNCTION: Normal Ranges: EF-A4C View: 59 % (>=55%) EF-A2C View: 70 % EF-Biplane: 66 % EF-Visual: 65 % LV EF Reported: 65 % LV DIASTOLIC FUNCTION: Normal Ranges: MV Peak E: 1.10 m/s (0.7-1.2 m/s) MV Peak A: 0.81 m/s (0.42-0.7 m/s) E/A Ratio: 1.36 (1.0-2.2) MV e' 0.103 m/s (>8.0) MV lateral e' 0.10 m/s MV medial e' 0.10 m/s E/e' Ratio: 10.72 (<8.0) MITRAL VALVE: Normal Ranges: MV DT: 153 msec (150-240msec) MITRAL INSUFFICIENCY: Normal Ranges: MR Vmax: 200.46 cm/s AORTIC VALVE: Normal Ranges: AoV Vmax: 1.52 m/s (<=1.7m/s) AoV Peak P.2 mmHg (<20mmHg) AoV Mean P.4 mmHg (1.7-11.5mmHg) LVOT Max Camilo: 1.01 m/s (<=1.1m/s) AoV VTI: 37.28 cm (18-25cm) LVOT VTI: 20.63 cm LVOT Diameter: 1.93 cm (1.8-2.4cm) AoV Area, VTI: 1.62 cm2 (2.5-5.5cm2) AoV Area,Vmax: 1.94 cm2 (2.5-4.5cm2) AoV Dimensionless Index: 0.55 RIGHT VENTRICLE: RV Basal 3.41 cm RV Mid 2.30 cm RV Major 7.4 cm TAPSE: 21.1 mm RV s' 0.13 m/s TRICUSPID VALVE/RVSP: Normal Ranges: Peak TR Velocity: 2.20 m/s PULMONIC VALVE: Normal Ranges: RVOT Vmax: 0.77 m/s (0.6-0.9m/s) AORTA: Asc Ao Diam 2.78 cm [id number] Hoang Warren MD, FACC Electronically signed on 09/03/2025 at 5:53:53 PM Final IMPRESSION: CONCLUSIONS: 1. Left ventricular ejection fraction is normal by visual estimate at65%. 2. Normal echocardiogram. 3. There is normal right ventricular global systolic function. Authorizing ProviderResult TypeResult StatusSheyla Pope BASIC SCIENCES DEAN-CNPCV ECHO PROCEDURESFinal ResultPerforming OrganizationAddressCity/State/ZIP CodePhone Number SYNGO from Last 3 Months Insurance Care Teams Team MemberRelationshipSpecialtyStart DateEnd Date Sanjuana Hollingsworth MD [address] [facility] [address] [place] [address] [facility] - General12/30/20
--- OUTSIDE RECORDS SUMMARY | 2025-10-02 06:59 | XMS_ITS | Encounter Summary ---
Author Organization [facility] Address [address] [place] [address] Care Team Providers Care Spike Machine Operator Name Role Phone Sanjuana Hollingsworth MD Primary Care Provider [phone] Encounter Details DateTypeDepartmentCare Team (Latest Contact Info)Ygxxmfzkxxj33/15/2025Travel Social History Tobacco UseTypesPacks/DayYears UsedDateSmoking Tobacco: FormerCigarettes [...] six or more drinks on one occasion?Never 3CommentsNoSex and Gender InformationValueDate RecordedSex Assigned at YwnyxEqjilq14/15/2023 1:48 PM ESTLegal HprZmspyw83/15/2023 7:13 PM EDTGender YnkvdzceXqnmry10/15/2023 1:48 PM ESTSexual OrientationStraight 08/31/2023 1:48 PM ESTdocumented as of this encounter Plan of Treatment DateTypeDepartmentCare Team (Latest Contact Info)Nmdapqohyxo49/05/2026 3:30 PM ESTOffice Visit [facility] [address] [place] [phone] Eliana Braga, ORAL HYGIENIST-INCLINED RAILWAY OPERATOR [address] [place] [address] 06/17/2026 3:50 PM EDTOffice Visit [facility] [address] [place] [address] Eliana Braga, ORAL HYGIENIST-INCLINED RAILWAY OPERATOR [address] [place] [address] 10/06/2026 9:00 AM ESTOffice Visit [facility] [address] [place] [address] Branden Spencer DO [address] [place] [address] documented as of this encounter Visit Diagnoses Not on filedocumented in this encounter Care Teams Team MemberRelationshipSpecialtyStart DateEnd Date Sanjuana Hollingsworth MD [address] [facility] [address] [place] [address] PCP - GeneralFamily Medicine02/22/23documented as of this encounter
--- OUTSIDE RECORDS SUMMARY | 2025-10-02 06:59 | XMS_ITS | Encounter Summary ---
Author Organization [facility] Address [address] [place] [address] Phone Care Team Providers Care Meat Stringer Name Role Phone Sanjuana Hollingsworth MD Primary Care Provider [phone] Reason for Visit * ReasonOnset YnzbDjmlmhyaRkplyar20/24/2025 Encounter Details DateTypeDepartmentCare Team (Latest Contact Info)Tupqmiuclvi04/24/2025Results Follow-Up at [facility] [address] [place] [phone] Magui Markahm LPN Transthoracic Echo Limited, CT cardiac scoring wo IV contrast Social History Tobacco UseTypesPacks/DayYears UsedDateSmoking Tobacco: FormerCigarettesAlcohol UseStandard Drinks/WeekCommentsYes4 (1 standard drink = 0.6 oz pure alcohol) CommentsUnknownSex and Gender InformationValueDate RecordedSex Assigned at BirthNot on fileLegal Ynv[place]akoj10/26/2022 2:39 PM ESTGender IdentityNot on fileSexual OrientationNot on filedocumented as of this encounter Miscellaneous Notes * Telephone Encounter - Magui Markham LPN - 09/24/2025 10:18 AM EST Result Communication Resulted Orders Transthoracic Echo Limited Result Value Ref Range AV mn grad 5 mmHg AV pk camilo 1.52 m/s LV Biplane EF 66 % LVOT diam 1.93 cm MV E/A ratio 1.36 Tricuspid annular plane systolic excursion 2.1 cm MV avg E/e' ratio 11.49 LA vol index A/L 29.4 ml/m2 RV free wall pk S' 12.89 cm/s RVSP 22 mmHg LVIDd 4.42 cm Aortic Valve Area by Continuity of Peak Velocity 1.94 cm2 AV pk grad 9 mmHg Aortic Valve Area by Continuity of VTI 1.62 cm2 LV EF 65 % LV A4C EF 59.1 Narrative [facility] [place] [facility] [place] [address] [facility], [address], [place] [address] TRANSTHORACIC ECHOCARDIOGRAM REPORT Patient Name: NICOLETTE Jordan JOSE ANTONIO Reading Physician: [id number] Hoang Warren MD, [facility] Study Date: 09/03/2025 Ordering Provider: [id number] SHEYLA POPE MRN/PID: [id number] Fellow: Nurse: Date of /Age: 8 1975 / 50 years Art History Instructor: Christina William RDCS, RVT Gender Assigned at F Additional Staff: : Height: 167.64 cm Admit Date: Weight: 75.75 kg Admission Status: Outpatient BSA / BMI: 1.85 m2 / 26.95 Department Location: [facility] [place] [facility] kg/m2 [place] Blood Pressure: 122 /78 mmHg Study Type: TRANSTHORACIC ECHO (TTE) LIMITED Diagnosis/ICD: Essential (primary) hypertension-I10 Indication: Abnormal EKG, Chest Pain, Hyperlipidemia, Former Smoker CPT Codes: Echo Limited-03864 Study Detail: The following Echo studies were performed: 2D, M-Mode, Doppler and color flow. PHYSICIAN INTERPRETATION: Left Ventricle: [...] (0.6-0.9m/s) AORTA: Asc Ao Diam 2.78 cm [id number] Hoang Warren MD, [facility] Electronically signed on 09/03/2025 at 5:53:53 PM Final Impression CONCLUSIONS: 1. Left ventricular ejection fraction is normal by visual estimate at 65%. 2. Normal echocardiogram. 3. There is normal right ventricular global systolic function. CT cardiac scoring wo IV contrast Narrative Interpreted By: Tj Leslie, STUDY: CT CARDIAC SCORING WO IV CONTRAST; 09/23/2025 4:18 pm INDICATION: Signs/Symptoms:shortness of brain. COMPARISON: None. ACCESSION NUMBER(S): [id number] ORDERING CLINICIAN: SHEYLA POPE TECHNIQUE: Using prospective [...] of mediastinal or hilar lymphadenopathy is identified. Impression 1. Coronary artery calcium score of 0*. *Coronary artery calcium scoring may be helpful in predicting the risk for future coronary heart disease events. According to the [place] [employer] Clinical Expert Consensus [...] modify other non-lipid coronary risk factors. Reference: Bromide P et al. Circulation. 2007; 115:402-426 MACRO: None. Signed by: Tj Leslie 09/24/2025 9:13 AM Dictation workstation: [id number] 10:18 AM Results were successfully communicated with the patient and they acknowledged their understanding. * Telephone Encounter - Magui Markham LPN - 09/24/2025 10:18 AM EST ----- Message from Sheyla Pope sent at 09/24/2025 9:41 AM EST ----- Please let her know calcium score is zero ----- Message ----- From: Interface, Radiology Results In Sent: 09/24/2025 9:15 AM EST To: MATTIE Choudhary documented in this encounter Plan of Treatment DateTypeDepartmentCare Team (Latest Contact Info)Bogxcizwmdq65/16/2026 8:00 AM EDTOffice Visit [facility] [address] [facility] [address] [place] [phone] Sheyla Pope APRN-CNP [address] [facility] [address] [place] [address] documented as of this encounter Visit Diagnoses Not on filedocumented in this encounter Care Teams Team MemberRelationshipSpecialtyStart DateEnd Date Sanjuana Hollingsworth MD [address] [facility] [address] [place] [address] PCP - General12/30/20documented as of this encounter
== END 2025-10-02 06:57 | disposition home or self-care (01) ==
LOC: MAMMO 06:56
PROVIDERS: PCP Family Medicine; Visit Provider Obstetrics & Gynecology
DX: Z12.31 Encounter for screening mammogram for malignant neoplasm of breast (principal)
CPT/HCPCS: 77063; 77067